=== PATIENT | male | born 1945 | race Caucasian/White ===

== ENCOUNTER → 2016-11-21 | Outpatient (CLI) | payer OTHER ==
[~2016-11-21] MED LIST: ASCO500C43 PO; ASPCH81X PO; ASPI325T45 PO; BIOFTAB24 PO; CRAN1TAB9 PO; CRFL PO; FINA5TAB PO; GARL10007 PO; LISI-725 PO; MULT-506 PO; OMEGCAP2 PO; OMEP40CA41 PO; PSYL1POW4 PO; PSYL48.59 PO; SIMV20TA2 PO; TAMS0.4C38 PO
--- NOTE | 2016-11-21 13:52 | DIAGNOSTIC IMAGING REPORT ---
BILATERAL CAROTID DOPPLER STUDY HISTORY: NUMBNESS OF THE FACE COMPARISON: None. TECHNIQUE: Real-time, grayscale, and color Doppler sonography of the carotid arteries was performed. Imaging reviewed in the transverse and longitudinal planes. All measurements were calculated based on NASCET criteria. FINDINGS: Antegrade flow is seen in the bilateral vertebral arteries. The brachial pressures are hemodynamically similar. Mild calcified plaque at the bilateral carotid bifurcations. The peak systolic velocity within the right ICA is 63 cm/s. The right systolic ratio is 0.8. The peak systolic velocity within the left ICA is 53 cm/s. The left systolic ratio is 0.6. IMPRESSION: No hemodynamically significant stenosis seen within the carotid arteries. Electronically signed by: Maxi Barrera M.D. 11/21/2016 1:51 PM Dictated Date/Time: 11/21/2016 1:49 PM
--- NOTE | 2016-11-28 11:07 | CODING QUERY MEDICAL NECESSITY ---
SUPPORTING DIAGNOSIS NEEDED A supporting diagnosis is required for the test/procedure performed on this patient in order for us to be reimbursed by the patient's insurance. Please provide a supporting diagnosis for the following test/procedure listed below next to the test name along with your signature. *If there is no additional diagnosis for this patient that would support the following test/procedure please document that below next to the test/procedure. Test(s)/Procedure(s) that require a supporting diagnosis: DOS 11/21 * Carotid Doppler DIAGNOSIS: Provider Signature: Date: Thank you Kaylynn Gurrola Health Information Management Once completed, please kindly fax back to [phone] For questions please call [phone]
== END | disposition home or self-care (01) ==
LOC: C.ULTRBC 13:01
PROVIDERS: ATTEND Psychiatry & Neurology Neurology
DX: R20.0 Anesthesia of skin (principal); R29.818 Other symptoms and signs involving the nervous system

== ENCOUNTER → 2016-11-21 | Outpatient (CLI) | payer OTHER ==
--- NOTE | 2016-11-22 10:09 | EEG Procedure Note ---
EEG Procedure Note Date of Service Nov 21, 2016. Start / End Times Start Time: 2:18 PM End Time: 2:38 PM Referring Physician Kady Taylor History This is a 71-year-old male with numbness and tingling of the left side of his face. EEG for further evaluation of possible seizure etiology. Home Medication List Scheduled Aspirin (Aspirin Chewable), 0.25 MG PO QAM Bioflavonoid Products (Vitamin C Plus 500 mg), 1 TAB PO BID Cranberry (Vaccinium Macrocarp (Cranberry), 1 TAB PO QAM Finasteride (Proscar), 5 MG PO HS Garlic (Garlic), 1 CAP PO QPM Lisinopril (Zestril), 20 MG PO QAM Multivitamin (Multivitamin), 1 TAB PO QAM [place]-3 Fatty Acids (Fish Oil), 1 CAP PO BID Omeprazole (Prilosec), 40 MG PO HS Psyllium (Metamucil), 1 DOSE PO QPM Simvastatin (Zocor), 20 MG PO QPM Tamsulosin Hcl (Flomax), 0.4 MG PO HS Description This is a 21 electrode EEG with a single channel dedicated to limited EKG. The electrodes were placed in accordance with the International 10-20 system. At the start of the recording the patient was in an awake state. Background was well organized and composed of symmetric mixed alpha and beta frequencies. There was a symmetric well-formed moderate amplitude 8-9 Hz posterior dominant rhythm that was reactive to eye opening and closure. Hyperventilation was not done. Intermittent photic stimulation at various frequencies produced no abnormalities. Sleep was indicated by vertex waves and symmetric sleep spindles. Interpretation This is a normal awake and asleep routine EEG. There was no electrographic seizures or epileptiform discharges. Clinical Correlation A normal EEG does not rule out epilepsy if there is a strong clinical suspicion. Snoring was noted during sleep. Clinical correlation advised.
== END | disposition home or self-care (01) ==
LOC: C.NEUR 14:03
PROVIDERS: ATTEND Psychiatry & Neurology Neurology
DX: R20.0 Anesthesia of skin (principal)

== ENCOUNTER 2017-01-22 10:02 | Observation (INO) | payer OTHER ==
[~2017-01-22] VITALS: Ht 167.6 cm; Wt 104.1 kg
[~2017-01-22 10:02] MED LIST changes: -ASCO500C43 PO; -ASPI325T45 PO; -CRFL PO; -PSYL48.59 PO
[2017-01-22] MEDS ORDERED: ASPIRIN 81 MG CHEW PO STA (10:23)
--- NOTE | 2017-01-22 10:25 | EMERGENCY ROOM VISIT NOTE ---
History Report prepared by Yue: Bipin Baxter Under the Supervision of: Dr. Jaguar Rodriguez M.D. First contact with patient: 10:11 Chief Complaint: CHEST PAIN Stated Complaint: CHEST PAIN, WEAKNESS Nursing Triage Summary: Pt. has intermittent CP that started over the last 3 mornings. He is currently 1/10. SOmetimes it feels like a 10/10. Pt. states it radiates to his left arm , and he has nausea. History of Present Illness The patient is a 71 year old male who presents to the Emergency Room with complaints of episodes of chest pain beginning about 3 days ago. He notes that he does not wake with the pain, but that the pain beginning about 10 minutes after waking. This morning his pain began around 0100, and the past 2 mornings his pain began around 0500. He rates his pain a 1/10 currently, but notes it was a 10/10 this morning. He adds having some nausea. The patient reports a history of cardiac issues beginning from when he was a child. He had had pericarditis as a child and was hospitalized for 7 weeks. He has had several stress tests, the last of which was 8 years ago which he passed. This past April of 2016 he had a cardiac catheterization. He notes at that time he was here at the hospital with the same complaint. He was going to have a stress test, but a catheterization was conducted instead because his enzymes were elevated. He reports there was a blockage in one artery. He was monitored for 2 days and then discharged. The patient states he takes 81 mg of Aspirin daily, but did not take any today. The patient adds that he is an ex-smoker of 35 years. Source of History: patient Onset: about 3 days ago Position: chest Symptom Intensity: 1/10 currently; 10/10 earlier Quality: other (chest pain) Timing: other (episodes) Associated Symptoms: + nausea Review of Systems See HPI for pertinent positives & negatives. A total of 10 systems reviewed and were otherwise negative. Past Medical & Surgical Medical Problems: (1) CAD (coronary artery disease) (2) Chest pain (3) Chronic back pain (4) Non-STEMI (non-ST elevated myocardial infarction) Family History FH: myocardial infarction Heart disease Social History Smoking Status: Former Smoker Drug Use: none Marital Status: Housing Status: lives with family Occupation Status: retired Current/Historical Medications Scheduled Ascorbic Acid (Vitamin C 500 mg), 500 MG PO BIDM Aspirin (Aspirin), 81 MG PO DAILY Cranberry (Vaccinium Macrocarp (Cranberry), 1 TAB PO QAM Finasteride (Proscar), 5 MG PO HS Garlic (Garlic), 1 CAP PO QPM Lisinopril (Zestril), 20 MG PO QAM Multivitamin (Multivitamin), 1 TAB PO QAM [place]-3 Fatty Acids (Fish Oil), 1 CAP PO BIDM Omeprazole (Prilosec), 40 MG PO DAILY Psyllium (Metamucil), 1 TBS PO HS Simvastatin (Zocor), 20 MG PO HS Tamsulosin Hcl (Flomax), 0.4 MG PO HS Allergies Coded Allergies: NO KNOWN DRUG ALLERGIES (Verified Allergy, Unknown, ., 10/07/16) Physical Exam Vital Signs Date Time Temp Pulse Resp B/P Pulse Ox O2 Delivery O2 Flow Rate FiO2 01/22/17 14:12 71 21 01/22/17 14:07 77 20 01/22/17 14:02 77 19 01/22/17 13:57 79 18 01/22/17 13:47 82 20 01/22/17 13:42 80 17 01/22/17 13:37 74 17 01/22/17 13:32 81 25 01/22/17 13:30 142/63 01/22/17 13:27 64 17 96 01/22/17 13:22 63 14 95 01/22/17 13:17 63 21 96 01/22/17 13:16 65 18 99/69 94 Room Air 01/22/17 13:15 99/69 01/22/17 13:12 75 22 95 01/22/17 13:07 64 16 95 01/22/17 13:02 61 19 95 01/22/17 13:00 151/67 01/22/17 12:57 61 18 96 01/22/17 12:54 64 01/22/17 12:52 60 20 96 01/22/17 12:47 64 21 97 01/22/17 12:46 164/70 01/22/17 12:42 62 20 96 01/22/17 12:37 65 20 96 01/22/17 12:32 66 20 97 01/22/17 12:30 141/90 01/22/17 12:27 61 21 97 01/22/17 12:22 66 16 96 01/22/17 12:17 58 16 96 01/22/17 12:15 146/76 01/22/17 12:12 67 22 96 01/22/17 12:07 68 19 97 01/22/17 12:02 61 22 96 01/22/17 12:00 153/69 01/22/17 11:57 66 15 96 01/22/17 11:52 69 15 97 01/22/17 11:47 65 18 96 01/22/17 11:46 132/67 01/22/17 11:42 65 16 97 01/22/17 11:37 64 19 96 01/22/17 11:32 64 16 96 01/22/17 11:30 155/63 01/22/17 11:27 60 16 96 01/22/17 11:22 66 17 95 01/22/17 11:17 66 20 96 01/22/17 11:15 137/72 01/22/17 11:12 65 18 97 01/22/17 11:07 65 21 97 01/22/17 11:02 65 16 98 01/22/17 11:00 170/107 01/22/17 10:57 63 16 95 01/22/17 10:52 63 17 97 01/22/17 10:47 62 15 96 01/22/17 10:45 155/76 01/22/17 10:42 66 17 97 01/22/17 10:37 61 17 95 01/22/17 10:32 62 17 96 01/22/17 10:31 157/77 01/22/17 10:27 74 16 96 01/22/17 10:22 68 19 96 01/22/17 10:20 70 01/22/17 10:16 176/73 01/22/17 10:14 97 Room Air 01/22/17 10:08 97 Room Air 01/22/17 10:08 37.2 68 16 164/81 97 Room Air Physical Exam GENERAL: Patient is a healthy-appearing well-nourished HEAD: Normocephalic atraumatic EYES: Ocular movements intact pupils equal and react to light OROPHARYNX mucous membranes are moist no exudates present no erythema or edema present NECK: Supple no nuchal rigidity CHEST: Good equal expansion LUNGS: Clear and equal to auscultation CARDIAC: Normal S1 and S2 ABDOMEN: Soft nontender no guarding BACK: No CVA tenderness EXTREMITIES: No pain upon palpation normal muscle strength in all groups no clubbing cyanosis or edema NEURO: Patient is following commands is answering questions appropriately. Alert and oriented x3 Cranial Nerves 2-12 grossly intact Medical Decision & Procedures ER Provider Diagnostic Interpretation: Radiology results as stated below per my review and radiologist interpretation: CHEST ONE VIEW PORTABLE FINDINGS: Lung volumes are normal. There is no pneumothorax or pleural effusion. There is no evidence of pulmonary edema. Mild cardiomegaly is unchanged. IMPRESSION: No acute cardiopulmonary findings. Electronically signed by: Reggie Bush M.D. 01/22/2017 11:11 AM Dictated Date/Time: 01/22/2017 11:10 AM Laboratory Results 01/22/17 10:15 Red Blood Count 4.66, Mean Corpuscular Volume 89.1, Mean Corpuscular Hemoglobin 31.8, Mean Corpuscular Hemoglobin Concent 35.7, Mean Platelet Volume 8.6, Neutrophils (%) (Auto) 85.5, Lymphocytes (%) (Auto) 7.4, Monocytes (%) (Auto) 6.7, Eosinophils (%) (Auto) 0.1, Basophils (%) (Auto) 0.1, Neutrophils # (Auto) 7.52, Lymphocytes # (Auto) 0.65, Monocytes # (Auto) 0.59, Eosinophils # (Auto) 0.01, Basophils # (Auto) 0.01 01/22/17 10:15 Test 01/22/17 10:15 White Blood Count 8.80 K/uL (4.8-10.8) Red Blood Count 4.66 M/uL (4.7-6.1) Hemoglobin 14.8 g/dL (14.0-18.0) Hematocrit 41.5 % (42-52) Mean Corpuscular Volume 89.1 fL (80-100) Mean Corpuscular Hemoglobin 31.8 pg (25-34) Mean Corpuscular Hemoglobin Concent 35.7 g/dl (32-36) Platelet Count 105 K/uL (130-400) Mean Platelet Volume 8.6 fL (7.4-10.4) Neutrophils (%) (Auto) 85.5 % Lymphocytes (%) (Auto) 7.4 % Monocytes (%) (Auto) 6.7 % Eosinophils (%) (Auto) 0.1 % Basophils (%) (Auto) 0.1 % Neutrophils # (Auto) 7.52 K/uL (1.4-6.5) Lymphocytes # (Auto) 0.65 K/uL (1.2-3.4) Monocytes # (Auto) 0.59 K/uL (0.11-0.59) Eosinophils # (Auto) 0.01 K/uL (0-0.5) Basophils # (Auto) 0.01 K/uL (0-0.2) RDW Standard Deviation 39.8 fL (36.4-46.3) RDW Coefficient of Variation 12.4 % (11.5-14.5) Immature Granulocyte % (Auto) 0.2 % Immature Granulocyte # (Auto) 0.02 K/uL (0.00-0.02) Anion Gap 9.0 mmol/L (3-11) Est Creatinine Clear Calc Drug Dose 85.4 ml/min Estimated GFR () 99.9 Estimated GFR (Non- 86.2 BUN/Creatinine Ratio 15.0 (10-20) Calcium Level 9.1 mg/dl (8.5-10.1) Total Bilirubin 0.6 mg/dl (0.2-1) Direct Bilirubin 0.1 mg/dl (0-0.2) Aspartate Amino Transf (AST/SGOT) 73 U/L (15-37) Alanine Aminotransferase (ALT/SGPT) 130 U/L (12-78) Alkaline Phosphatase 45 U/L (45-117) Total Creatine Kinase 118 U/L (39-308) Creatine Kinase MB 0.7 ng/ml (0.5-3.6) Creatine Kinase MB Ratio 0.6 (0-3.0) Troponin I < 0.015 ng/ml (0-0.045) Total Protein 7.3 gm/dl (6.4-8.2) Albumin 3.8 gm/dl (3.4-5.0) Lipase 131 U/L (73-393) Labs reviewed by ED physician. Medications Administered Medications (Trade) Dose Ordered Sig/Marilee Route Start Time Stop Time Status Last Admin Dose Admin Aspirin (Aspirin Chew) 324 mg NOW STAT PO 01/22/17 10:23 01/22/17 10:24 DC 3/26/17 10:28 324 MG ECG Indication: chest pain Rate (beats per minute): 65 Rhythm: sinus rhythm Findings: no acute ischemic change, no ectopy ED Course 1013: Past medical records reviewed. The patient was evaluated in room A2. A complete history and physical examination was performed. 1023: Ordered Aspirin 324 mg PO. 1135: I discussed the patient's case with Dr. Umaña, he has agreed to evaluate the patient for further management and care. Medical Decision Differential diagnosis: Etiologies such as cardiac ischemia, aortic dissection, pulmonary embolism, pneumonia, pneumothorax, musculoskeletal, infections, pericarditis, myocarditis , esophageal rupture, gastrointestinal, as well as others were entertained. This is a 71-year-old male who presents here she department with a history of an NSTEMI in the past. The patient reports he fell asleep last night and woke to severe chest pain that was 10 out of 10 radiating down his arm. The patient reports the chest pain was similar to when he had his previous NSTEMI. He is currently pain-free here in the emergency department. Patient has an unchanged EKG and has normal cardiac enzymes including CK-MB and troponin fraction. The patient was given 324 mg of aspirin in the emergency department. Based on the patient's past medical history I did discuss the case with the hospitalist service who agreed to admit the patient. Patient was in agreement with the treatment plan. Consults Time Called: 1130 Consulting Physician: Dr. Umaña, Internal Medicine Returned Call: 1132 I discussed the patient's case with Dr. Umaña, he has agreed to evaluate the patient for further management and care. Scribe Attestation The scribe's documentation has been prepared under my direction and personally reviewed by me in its entirety. I confirm that the note above accurately reflects all work, treatment, procedures, and medical decision making performed by me. Departure Information Dispostion Being Evaluated By Hospitalist Referrals Andres Salcido M.D. (PCP) Patient Instructions [facility]
[2017-01-22] MEDS ORDERED: ASPI325T45 PO (10:27)
[2017-01-22] MEDS ORDERED: ASCO500C43 PO (10:27)
[2017-01-22] MEDS ORDERED: PSYL48.59 PO (10:31)
[2017-01-22 10:35] LABS: BASO % 0.1 %; BASO ABS # 0.01 K/uL (0-0.2); COMPLETE YES; EOS % 0.1 %; HEMATOCRIT 41.5 % (42-52); IG% 0.2 %; LYMPH % 7.4 %; LYMPH ABS # 0.65 K/uL (1.2-3.4); MEAN CELL VOLUME 89.1 fL (80-100); MEAN CORPUSCULAR HEMOGLOBIN 31.8 pg (25-34); MEAN CORPUSCULAR HGB CONC 35.7 g/dl (32-36); MEAN PLATELET VOLUME 8.6 fL (7.4-10.4); MONO % 6.7 %; NEUT % 85.5 %; PLATELET COUNT 105 K/uL (130-400); RED BLOOD COUNT 4.66 M/uL (4.7-6.1)
[2017-01-22 10:52] LABS: ALT/SGPT 130 U/L (12-78); BLOOD UREA NITROGEN 14 mg/dl (7-18); CALCIUM 9.1 mg/dl (8.5-10.1); CARBON DIOXIDE 27 mmol/L (21-32); CHLORIDE 107 mmol/L (98-107); GLUCOSE 120 mg/dl (70-99); SODIUM 143 mmol/L (136-145)
[2017-01-22 10:57] LABS: ALKALINE PHOSPHATASE 45 U/L (45-117); AST/SGOT 73 U/L (15-37); CKMB/CK RATIO 0.6 (0-3.0)
--- NOTE | 2017-01-22 11:12 | DIAGNOSTIC IMAGING REPORT ---
CHEST ONE VIEW PORTABLE CLINICAL HISTORY: Chest pain. COMPARISON STUDY: Chest radiograph September 20, [address] June 03, 2016. FINDINGS: Lung volumes are normal. There is no pneumothorax or pleural effusion. There is no evidence of pulmonary edema. Mild cardiomegaly is unchanged. IMPRESSION: No acute cardiopulmonary findings. Electronically signed by: Reggie Bush M.D. 01/22/2017 11:11 AM Dictated Date/Time: 01/22/2017 11:10 AM
[2017-01-22] MEDS ORDERED: NITROGLYCERIN 0.4 MG SL PER TAB CHARGE SL PRN (12:30)
[2017-01-22] MEDS ORDERED: ONDANSETRON INJ 2 MG/ML 2 ML VIAL IV PRN (12:30)
[2017-01-22] MEDS ORDERED: POLYETHYLENE (MIRALAX) 17 GM PACK PO PRN (12:30)
[2017-01-22] MEDS ORDERED: MoRPHine SULFATE 2 MG/ML CARP IV PRN (12:30)
[2017-01-22] MEDS ORDERED: IV FLUIDS COMPLETED PRN (14:15)
[2017-01-22 15:56] VITALS: BP 162/78; PULSE 72; TEMP 36.8; O2SAT 99; Ht 167.6 cm; Wt 104.1 kg
[2017-01-22 16:01] LABS: PROTHROMBIN TIME (PATIENT) 10.6 SECONDS (9.0-12.0)
--- NOTE | 2017-01-22 16:06 | History and Physical ---
History & Physical Date & Time of Service: Jan 22, 2017 at 15:50 Chief Complaint: Cad,Chest Pain Primary Care Physician: Andres Salcido M.D. History of Present Illness Source: patient, family, clinic records, hospital records 71 yo male with a history of CAD, NSTEMI who presents to the ED today with chest pain when he wakes up. The patient reports that his chest pain is an ongoing issue, occurs mostly when he wakes up. The pain is severe, described as sharp. He said that the pain is similar to what he experienced in April 2016 when he had an NSTEMI. Reviewed of the records show that in April he had a left heart catheterization that showed minimal disease. At the time, it was thought that maybe he had a small clot in RCA that dissolved prior to the cath. His heart function was stable on echo. He was managed medically on statin, Coreg, Lisinopril and aspirin. Several weeks after his heart cath his symptoms returned, again, in the morning. Would not wake him up but he would notice the pain after waking up. He saw cardiology at that time and they performed a nuclear stress test that showed no signs of coronary ischemia. He has continued to have issues intermittently, almost always in the morning. Interestingly, he never has chest pain on exertion, he walks on a treadmill every day for 20-30 minutes at 3mph and never has symptoms. He has some shortness of breath but no chest pain or pressure. Today, the pain occurred when he woke up. It has happened the past 4 mornings. He did not have any nausea, diaphoresis or radiation of the pain. His EKG showed NSR, troponin negative, CXR negative. I asked if his PCP had tried aggressive treatment of GERD and he did say that his omeprazole increased from 20mg to 40mg, no change in symptoms. He has not had an EGD in the past. Past Medical/Surgical History CAD, NSTEMI 04/2016 HTN BPH hyperlipidemia Family History FH: myocardial infarction Heart disease Social History Smoking Status: Former Smoker Drug Use: none Marital Status: Housing status: lives with family Occupational Status: retired Immunizations History of Influenza Vaccine: N/A History of Tetanus Vaccine?: No History of Pneumococcal: No Pneumococcal Date: May 20, 2006 History of Hepatitis B Vaccine: No Multi-Drug Resistant Organisms History of MDRO: No Allergies Coded Allergies: NO KNOWN DRUG ALLERGIES (Verified Allergy, Unknown, ., 10/07/16) Home Medications Scheduled Ascorbic Acid (Vitamin C 500 mg), 500 MG PO BIDM Aspirin (Aspirin), 81 MG PO DAILY Cranberry (Vaccinium Macrocarp (Cranberry), 1 TAB PO QAM Finasteride (Proscar), 5 MG PO HS Garlic (Garlic), 1 CAP PO QPM Lisinopril (Zestril), 20 MG PO QAM Multivitamin (Multivitamin), 1 TAB PO QAM [place]-3 Fatty Acids (Fish Oil), 1 CAP PO BIDM Omeprazole (Prilosec), 40 MG PO DAILY Psyllium (Metamucil), 1 TBS PO HS Simvastatin (Zocor), 20 MG PO HS Tamsulosin Hcl (Flomax), 0.4 MG PO HS Review of Systems Constitutional: No chills, No fatigue, No fever, No problem reported, No sweats , No weakness, No weight loss Eyes: No diplopia, No discharge, No eye pain, No problem reported, No redness, No worsening of vision ENT: No dental problems, No hearing loss, No nasal symptoms, No problem reported, No sore throat, No tinnitus, No trouble swallowing, No unusual epistaxis Respiratory: No cough, No dyspnea at rest, No dyspnea on exertion, No hemoptysis, No problem reported, No shortness of breath, No sputum, No wheezing Cardiovascular: + chest pain, No PND, No claudication, No edema, No orthopnea, No palpitations Abdomen: No GI bleeding, No constipation, No diarrhea, No nausea, No pain, No problem reported, No vomiting Musculoskeletal: No calf pain, No joint pain, No muscle pain, No problem reported, No swelling Genitourinary - Male: No dysuria, No hematuria, No urinary frequency, No urinary urgency Neurologic: No balance problems, No memory loss, No numbness/tingling, No paralysis, No problem reported, No vertigo, No weakness Psychiatric: No anhedonism, No anxiety, No depression symptoms, No insomnia, No problem reported, No substance abuse Endocrine: No excessive thirst, No excessive urination, No fatigue, No problem reported Hematologic / Lymphatic: No abnormal bleeding/bruising, No clotting problems, No night sweats, No problem reported, No swollen lymph nodes Integumentary: No bleeding, No color change, No itch, No new/changing skin lesions, No problem reported, No rash Allergic / Immunologic: No environmental allergies, No food allergies, No frequent infections, No hives, No pet sensitivities, No poor healing, No problem reported, No prolonged convalescence, No seasonal allergies Physical Exam Vital Signs Date Time Temp Pulse Resp B/P Pulse Ox O2 Delivery O2 Flow Rate FiO2 01/22/17 14:12 71 21 01/22/17 14:07 77 20 01/22/17 14:02 77 19 01/22/17 13:57 79 18 01/22/17 13:47 82 20 01/22/17 13:42 80 17 01/22/17 13:37 74 17 01/22/17 13:32 81 25 01/22/17 13:30 142/63 01/22/17 13:27 64 17 96 01/22/17 13:22 63 14 95 01/22/17 13:17 63 21 96 01/22/17 13:16 65 18 99/69 94 Room Air 01/22/17 13:15 99/69 01/22/17 13:12 75 22 95 01/22/17 13:07 64 16 95 01/22/17 13:02 61 19 95 01/22/17 13:00 151/67 01/22/17 12:57 61 18 96 01/22/17 12:54 64 01/22/17 12:52 60 20 96 01/22/17 12:47 64 21 97 01/22/17 12:46 164/70 01/22/17 12:42 62 20 96 01/22/17 12:37 65 20 96 01/22/17 12:32 66 20 97 01/22/17 12:30 141/90 01/22/17 12:27 61 21 97 01/22/17 12:22 66 16 96 01/22/17 12:17 58 16 96 01/22/17 12:15 146/76 01/22/17 12:12 67 22 96 01/22/17 12:07 68 19 97 01/22/17 12:02 61 22 96 01/22/17 12:00 153/69 01/22/17 11:57 66 15 96 01/22/17 11:52 69 15 97 01/22/17 11:47 65 18 96 01/22/17 11:46 132/67 01/22/17 11:42 65 16 97 01/22/17 11:37 64 19 96 01/22/17 11:32 64 16 96 01/22/17 11:30 155/63 01/22/17 11:27 60 16 96 01/22/17 11:22 66 17 95 01/22/17 11:17 66 20 96 01/22/17 11:15 137/72 01/22/17 11:12 65 18 97 01/22/17 11:07 65 21 97 01/22/17 11:02 65 16 98 01/22/17 11:00 170/107 01/22/17 10:57 63 16 95 01/22/17 10:52 63 17 97 01/22/17 10:47 62 15 96 01/22/17 10:45 155/76 01/22/17 10:42 66 17 97 01/22/17 10:37 61 17 95 01/22/17 10:32 62 17 96 01/22/17 10:31 157/77 01/22/17 10:27 74 16 96 01/22/17 10:22 68 19 96 01/22/17 10:20 70 01/22/17 10:16 176/73 01/22/17 10:14 97 Room Air 01/22/17 10:08 97 Room Air 01/22/17 10:08 37.2 68 16 164/81 97 Room Air General Appearance: no apparent distress, + obese Head: normocephalic, atraumatic Eyes: normal inspection, EOMI, sclerae normal ENT: normal ENT inspection, hearing grossly normal, pharynx normal Neck: supple, no adenopathy, no JVD, trachea midline Respiratory/Chest: chest non-tender, lungs clear, normal breath sounds, no respiratory distress, no accessory muscle use Cardiovascular: regular rate, rhythm, no edema, no gallop, no JVD, no murmur, normal peripheral pulses Abdomen/GI: normal bowel sounds, non tender, soft, no organomegaly Back: normal inspection, no CVA tenderness, no muscle spasm, normal range of motion Extremities/Musculoskelatal: normal inspection, no calf tenderness, normal capillary refill, no pedal edema, normal range of motion 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, no motor/sensory deficits, alert, normal mood/affect, normal reflexes, oriented x 3 Skin: normal color, warm/dry, no rash Lymphatic: no adenopathy Diagnostics Laboratory Results Results Past 24 Hours Test 01/22/17 10:15 01/22/17 15:30 Range/Units White Blood Count 8.80 4.8-10.8 K/uL Red Blood Count 4.66 4.7-6.1 M/uL Hemoglobin 14.8 14.0-18.0 g/dL Hematocrit 41.5 42-52 % Mean Corpuscular Volume 89.1 80-100 fL Mean Corpuscular Hemoglobin 31.8 25-34 pg Mean Corpuscular Hemoglobin Concent 35.7 32-36 g/dl Platelet Count 105 130-400 K/uL Mean Platelet Volume 8.6 7.4-10.4 fL Neutrophils (%) (Auto) 85.5 % Lymphocytes (%) (Auto) 7.4 % Monocytes (%) (Auto) 6.7 % Eosinophils (%) (Auto) 0.1 % Basophils (%) (Auto) 0.1 % Neutrophils # (Auto) 7.52 1.4-6.5 K/uL Lymphocytes # (Auto) 0.65 1.2-3.4 K/uL Monocytes # (Auto) 0.59 0.11-0.59 K/uL Eosinophils # (Auto) 0.01 0-0.5 K/uL Basophils # (Auto) 0.01 0-0.2 K/uL RDW Standard Deviation 39.8 36.4-46.3 fL RDW Coefficient of Variation 12.4 11.5-14.5 % Immature Granulocyte % (Auto) 0.2 % Immature Granulocyte # (Auto) 0.02 0.00-0.02 K/uL Sodium Level 143 136-145 mmol/L Potassium Level 4.0 3.5-5.1 mmol/L Chloride Level 107 98-107 mmol/L Carbon Dioxide Level 27 21-32 mmol/L Anion Gap 9.0 3-11 mmol/L Blood Urea Nitrogen 14 7-18 mg/dl Creatinine 0.90 0.60-1.40 mg/dl Est Creatinine Clear Calc Drug Dose 85.4 ml/min Estimated GFR () 99.9 Estimated GFR (Non- 86.2 BUN/Creatinine Ratio 15.0 10-20 Random Glucose 120 70-99 mg/dl Calcium Level 9.1 8.5-10.1 mg/dl Total Bilirubin 0.6 0.2-1 mg/dl Direct Bilirubin 0.1 0-0.2 mg/dl Aspartate Amino Transf (AST/SGOT) 73 15-37 U/L Alanine Aminotransferase (ALT/SGPT) 130 12-78 U/L Alkaline Phosphatase 45 45-117 U/L Total Creatine Kinase 118 39-308 U/L Creatine Kinase MB 0.7 0.5-3.6 ng/ml Creatine Kinase MB Ratio 0.6 0-3.0 Troponin I < 0.015 0-0.045 ng/ml Total Protein 7.3 6.4-8.2 gm/dl Albumin 3.8 3.4-5.0 gm/dl Lipase 131 73-393 U/L CXR normal Normal EKG Impression Assessment and Plan 71 yo male with history of CAD with NSTEMI in April 2016, presents with chest pain at rest occurring in the morning, no history of exertional angina - Chest pain, atypical normal EKG, initial enzymes negative observe on tele, cycle enzymes consult cardiology, do not feel that stress test would be helpful had a negative nuclear stress in the fall, minimal CAD on cath last April if an EGD is recommended by GI then would likely need cards clearance - Possible GERD perhaps this is severe GERD, even esophagitis Protonix BID NPO after midnight GI consult for recommendations - HTN: lisinopril - Hyperlipidemia: statin - DVT prophylaxis: heparin Level of Care Telemetry Resuscitation Status FULL RESUSCITATION VTE Prophylaxis VTE Risk Assessment Done? Y/N: Yes Risk Level: Moderate Given or contraindicated: Unfractionated heparin SQ Additional Copies To Andres Salcido M.D.
[2017-01-22 16:50] VITALS: BP 148/69; PULSE 62
[2017-01-22 18:10] VITALS: BP 143/65; PULSE 61; TEMP 36.7; O2SAT 96
[2017-01-22 18:37] LABS: CKMB/CK RATIO 0.7 (0-3.0)
[2017-01-22 20:18] VITALS: BP 160/80; PULSE 57; TEMP 36.7; O2SAT 97
[2017-01-22] MEDS: PANTOprazole SOD 40 MG TAB PO SCH (20:34)
[2017-01-22] MEDS ORDERED: SIMVASTATIN 20 MG TAB PO SCH (21:00)
[2017-01-22] MEDS ORDERED: TAMSULOSIN HCL 0.4 MG CAP PO SCH (21:00)
[2017-01-22] MEDS ORDERED: FINASTERIDE 5 MG TAB PO SCH (21:00)
[2017-01-22] MEDS: HEPARIN SOD 5000 UNIT/0.5 ML CARP SQ SCH (21:25)
[2017-01-22] MEDS: ACETAMINOPHEN 325 MG TAB PO PRN (21:29)
[2017-01-22 22:36] VITALS: BP 151/78; PULSE 56; O2SAT 98
[2017-01-22 23:28] VITALS: BP 138/70; PULSE 57; TEMP 36.6; O2SAT 96
[2017-01-23 02:18] LABS: CKMB/CK RATIO 1.2 (0-3.0)
[2017-01-23] MEDS: ACETAMINOPHEN 325 MG TAB PO PRN ×2 (03:24→07:36)
[2017-01-23 04:45] VITALS: BP 150/62; PULSE 58; TEMP 36.8; O2SAT 98
[2017-01-23] MEDS: HEPARIN SOD 5000 UNIT/0.5 ML CARP SQ SCH ×2 (05:32→13:15)
[2017-01-23] MEDS: PANTOprazole SOD 40 MG TAB PO SCH (07:28)
[2017-01-23 07:53] VITALS: BP 165/77; PULSE 59; TEMP 36.6; O2SAT 98
[2017-01-23 08:24] LABS: HEMATOCRIT 43.3 % (42-52); MEAN CELL VOLUME 89.8 fL (80-100); MEAN CORPUSCULAR HEMOGLOBIN 31.7 pg (25-34); MEAN CORPUSCULAR HGB CONC 35.3 g/dl (32-36); RED BLOOD COUNT 4.82 M/uL (4.7-6.1); WHITE BLOOD COUNT 4.56 K/uL (4.8-10.8)
[2017-01-23 08:48] LABS: BUN/CREATININE RATIO 13.8 (10-20); CALCIUM 8.9 mg/dl (8.5-10.1); CREATININE 0.92 mg/dl (0.60-1.40); POTASSIUM 3.9 mmol/L (3.5-5.1)
[2017-01-23 08:49] VITALS: O2SAT 98
[2017-01-23 08:51] LABS: ALB/GLOB RATIO 1.1 (0.9-2)
[2017-01-23] MEDS ORDERED: LISINOPRIL 20 MG TAB PO SCH (09:00)
[2017-01-23] MEDS ORDERED: ASPIRIN 81 MG ECTAB PO SCH (09:00)
[2017-01-23 09:14] LABS: MEAN PLATELET VOLUME 8.3 fL (7.4-10.4); PLATELET COUNT 99 K/uL (130-400)
--- NOTE | 2017-01-23 09:17 | Family Medicine Progress Note ---
Progress Note Date of Service Jan 23, 2017. Objective Vital Signs Date Time Temp Pulse Resp B/P Pulse Ox O2 Delivery O2 Flow Rate FiO2 01/23/17 08:49 98 Room Air 01/23/17 07:53 36.6 59 20 165/77 98 01/23/17 04:45 36.8 58 18 150/62 98 Room Air 01/23/17 04:14 Room Air 01/23/17 00:10 Room Air 01/22/17 23:28 36.6 57 18 138/70 96 Room Air 01/22/17 22:36 56 18 151/78 98 Room Air 01/22/17 20:18 36.7 57 18 160/80 97 Room Air 01/22/17 19:49 Room Air 01/22/17 18:10 36.7 61 22 143/65 96 Room Air 01/22/17 16:50 62 148/69 01/22/17 16:00 Room Air 01/22/17 15:56 36.8 72 24 162/78 99 Room Air 01/22/17 14:12 71 21 01/22/17 14:07 77 20 01/22/17 14:02 77 19 01/22/17 13:57 79 18 01/22/17 13:47 82 20 01/22/17 13:42 80 17 01/22/17 13:37 74 17 01/22/17 13:32 81 25 01/22/17 13:30 142/63 01/22/17 13:27 64 17 96 01/22/17 13:22 63 14 95 01/22/17 13:17 63 21 96 01/22/17 13:16 65 18 99/69 94 Room Air 01/22/17 13:15 99/69 01/22/17 13:12 75 22 95 01/22/17 13:07 64 16 95 01/22/17 13:02 61 19 95 01/22/17 13:00 151/67 01/22/17 12:57 61 18 96 01/22/17 12:54 64 01/22/17 12:52 60 20 96 01/22/17 12:47 64 21 97 01/22/17 12:46 164/70 01/22/17 12:42 62 20 96 01/22/17 12:37 65 20 96 01/22/17 12:32 66 20 97 01/22/17 12:30 141/90 01/22/17 12:27 61 21 97 01/22/17 12:22 66 16 96 01/22/17 12:17 58 16 96 01/22/17 12:15 146/76 01/22/17 12:12 67 22 96 01/22/17 12:07 68 19 97 01/22/17 12:02 61 22 96 01/22/17 12:00 153/69 01/22/17 11:57 66 15 96 01/22/17 11:52 69 15 97 01/22/17 11:47 65 18 96 01/22/17 11:46 132/67 01/22/17 11:42 65 16 97 01/22/17 11:37 64 19 96 01/22/17 11:32 64 16 96 01/22/17 11:30 155/63 01/22/17 11:27 60 16 96 01/22/17 11:22 66 17 95 01/22/17 11:17 66 20 96 01/22/17 11:15 137/72 01/22/17 11:12 65 18 97 01/22/17 11:07 65 21 97 01/22/17 11:02 65 16 98 01/22/17 11:00 170/107 01/22/17 10:57 63 16 95 01/22/17 10:52 63 17 97 01/22/17 10:47 62 15 96 01/22/17 10:45 155/76 01/22/17 10:42 66 17 97 01/22/17 10:37 61 17 95 01/22/17 10:32 62 17 96 01/22/17 10:31 157/77 01/22/17 10:27 74 16 96 01/22/17 10:22 68 19 96 01/22/17 10:20 70 01/22/17 10:16 176/73 01/22/17 10:14 97 Room Air 01/22/17 10:08 97 Room Air 01/22/17 10:08 37.2 68 16 164/81 97 Room Air Laboratory Results Results Past 24 Hours Test 01/22/17 10:15 01/22/17 15:30 01/22/17 18:04 01/23/17 01:40 Range/Units White Blood Count 8.80 4.8-10.8 K/uL Red Blood Count 4.66 4.7-6.1 M/uL Hemoglobin 14.8 14.0-18.0 g/dL Hematocrit 41.5 42-52 % Mean Corpuscular Volume 89.1 80-100 fL Mean Corpuscular Hemoglobin 31.8 25-34 pg Mean Corpuscular Hemoglobin Concent 35.7 32-36 g/dl Platelet Count 105 130-400 K/uL Mean Platelet Volume 8.6 7.4-10.4 fL Neutrophils (%) (Auto) 85.5 % Lymphocytes (%) (Auto) 7.4 % Monocytes (%) (Auto) 6.7 % Eosinophils (%) (Auto) 0.1 % Basophils (%) (Auto) 0.1 % Neutrophils # (Auto) 7.52 1.4-6.5 K/uL Lymphocytes # (Auto) 0.65 1.2-3.4 K/uL Monocytes # (Auto) 0.59 0.11-0.59 K/uL Eosinophils # (Auto) 0.01 0-0.5 K/uL Basophils # (Auto) 0.01 0-0.2 K/uL RDW Standard Deviation 39.8 36.4-46.3 fL RDW Coefficient of Variation 12.4 11.5-14.5 % Immature Granulocyte % (Auto) 0.2 % Immature Granulocyte # (Auto) 0.02 0.00-0.02 K/uL Sodium Level 143 136-145 mmol/L Potassium Level 4.0 3.5-5.1 mmol/L Chloride Level 107 98-107 mmol/L Carbon Dioxide Level 27 21-32 mmol/L Anion Gap 9.0 3-11 mmol/L Blood Urea Nitrogen 14 7-18 mg/dl Creatinine 0.90 0.60-1.40 mg/dl Est Creatinine Clear Calc Drug Dose 85.4 ml/min Estimated GFR () 99.9 Estimated GFR (Non- 86.2 BUN/Creatinine Ratio 15.0 10-20 Random Glucose 120 70-99 mg/dl Calcium Level 9.1 8.5-10.1 mg/dl Total Bilirubin 0.6 0.2-1 mg/dl Direct Bilirubin 0.1 0-0.2 mg/dl Aspartate Amino Transf (AST/SGOT) 73 15-37 U/L Alanine Aminotransferase (ALT/SGPT) 130 12-78 U/L Alkaline Phosphatase 45 45-117 U/L Total Creatine Kinase 118 109 110 39-308 U/L Creatine Kinase MB 0.7 0.8 1.3 0.5-3.6 ng/ml Creatine Kinase MB Ratio 0.6 0.7 1.2 0-3.0 Troponin I < 0.015 0.023 < 0.015 0-0.045 ng/ml Total Protein 7.3 6.4-8.2 gm/dl Albumin 3.8 3.4-5.0 gm/dl Lipase 131 73-393 U/L Prothrombin Time 10.6 9.0-12.0 SECONDS Prothromb Time International Ratio 1.0 0.9-1.1 Test 01/23/17 08:03 Range/Units White Blood Count 4.56 4.8-10.8 K/uL Red Blood Count 4.82 4.7-6.1 M/uL Hemoglobin 15.3 14.0-18.0 g/dL Hematocrit 43.3 42-52 % Mean Corpuscular Volume 89.8 80-100 fL Mean Corpuscular Hemoglobin 31.7 25-34 pg Mean Corpuscular Hemoglobin Concent 35.3 32-36 g/dl Platelet Count 99 130-400 K/uL Mean Platelet Volume 8.3 7.4-10.4 fL RDW Standard Deviation 40.9 36.4-46.3 fL RDW Coefficient of Variation 12.6 11.5-14.5 % Activated Partial Thromboplast Time 25.2 21.0-31.0 SECONDS Partial Thromboplastin Ratio 1.0 Sodium Level 142 136-145 mmol/L Potassium Level 3.9 3.5-5.1 mmol/L Chloride Level 105 98-107 mmol/L Carbon Dioxide Level 30 21-32 mmol/L Anion Gap 7.0 3-11 mmol/L Blood Urea Nitrogen 13 7-18 mg/dl Creatinine 0.92 0.60-1.40 mg/dl Est Creatinine Clear Calc Drug Dose 84.4 ml/min Estimated GFR () 97.3 Estimated GFR (Non- 84.0 BUN/Creatinine Ratio 13.8 10-20 Random Glucose 114 70-99 mg/dl Calcium Level 8.9 8.5-10.1 mg/dl Total Bilirubin 0.7 0.2-1 mg/dl Aspartate Amino Transf (AST/SGOT) 41 15-37 U/L Alanine Aminotransferase (ALT/SGPT) 95 12-78 U/L Alkaline Phosphatase 47 45-117 U/L Total Protein 7.4 6.4-8.2 gm/dl Albumin 3.8 3.4-5.0 gm/dl Globulin 3.6 2.5-4.0 gm/dl Albumin/Globulin Ratio 1.1 0.9-2
[2017-01-23 09:20] LABS: BASO % 0.4 %; BASO ABS # 0.02 K/uL (0-0.2); COMPLETE YES; EOS % 1.3 %; IG% 0.2 %; LYMPH % 22.4 %; LYMPH ABS # 1.02 K/uL (1.2-3.4); MONO % 9.4 %; NEUT % 66.3 %
[2017-01-23] MEDS ORDERED: SODIUM CHLORIDE 0.9% 1000ML 1,000 ML IV SCH (10:00)
--- NOTE | 2017-01-23 10:00 | Gastrointestinal Consultation ---
Gastrointestinal Consultation Date of Consultation: Jan 23, 2017 Attending Physician: Dr. Umaña Consulting Physician: Dr. Mcnamara/AYAKA Mcgarry Reason for Consultation: Atypical chest pain History of Present Illness Patient is a 71 year old male with a history of CAD and NSTEMI presenting with intermittent chest pains that awaken him from sleep. He states the pains have been ongoing since April of 2016. Since the onset, he has had close follow up with cardiology and has undergone an extensive work up of symptoms. He did have an unremarkable nuclear stress test in the fall of 2015. On arrival, he did have an unremarkable ECG as well as serial negative troponins. The patient was given a single dose of nitroglycerin which reportedly did not improve his symptoms. The patient describes the pain as a sharp, severe pain that comes and goes and is most notable in the morning and again awakening him from sleep. Pain is currently rated as 2/10 in the mid chest without radiation. Associated symptoms include: epigastric discomfort, nausea and fatigue. Patient does have a history of GERD but denies any pyrosis stating "that's pretty well controlled ". He further denies any dysphagia, odynophagia, vomiting, diarrhea, constipation, melena or hematochezia. H&H on arrival was noted to be 14.8 and 41.5 with repeat of 15.3 and 43.3 respectively. Patient was placed on Protonix 40 mg BID on arrival. Risk factors: daily alcohol, aspirin with NSAID use but no tobacco. Past Medical/Surgical History Medical Problems: (1) Radiating chest pain Status: Acute Past Medical History: 1. CAD 2. HTN 3. Hyperlipidemia 4. NSTEMI 5. BPH 6. GERD 7. Colon polyp 8. Diverticulosis Past Surgical History: 1. Cardiac catheterization 2. EGD years ago 3. Colonoscopy 2016 with polypectomy Family History FH: myocardial infarction Heart disease Mother with colon cancer. Father with heart disease Social History Smoking Status: Former Smoker Alcohol Use: other (daily) Drug Use: none Marital Status: Housing Status: lives with family Occupation Status: retired Allergies Coded Allergies: NO KNOWN DRUG ALLERGIES (Verified Allergy, Unknown, ., 10/07/16) Current Medications Home Meds and Scripts Medications Dose Route/Sig Max Daily Dose Days Date Category Metamucil (Psyllium) 48.57 % Pow 1 Tbs PO HS 01/22/17 Reported Vitamin C 500 mg (Ascorbic Acid) 1 Chw Chw 500 Mg PO BIDM 01/22/17 Reported Aspirin 325 Mg Tab 81 Mg PO DAILY 01/22/17 Reported Fish Oil (Dunnigan-3 Fatty Acids) 1 Cap Cap 1 Cap PO BIDM 10/07/16 Reported Cranberry (Cranberry (Vaccinium Macrocarp) 300 Mg Tab 1 Tab PO QAM 10/07/16 Reported Garlic 1,000 Mg Cap 1 Cap PO QPM 10/07/16 Reported Multivitamin (Multivitamins) Tab 1 Tab PO QAM 10/07/16 Reported Prilosec (Omeprazole) 40 Mg Cap 40 Mg PO DAILY 10/07/16 Reported Proscar (Finasteride) 5 Mg Tab 5 Mg PO HS 10/07/16 Reported Flomax (Tamsulosin Hcl) 0.4 Mg Cap 0.4 Mg PO HS 10/07/16 Reported Zocor (Simvastatin) 20 Mg Tab 20 Mg PO HS 10/07/16 Reported Zestril (Lisinopril) 20 Mg Tab 20 Mg PO QAM 10/07/16 Reported Review of Systems See HPI for pertinent positives & negatives. A total of 10 systems reviewed and were otherwise negative. Physical Exam Date Time Temp Pulse Resp B/P Pulse Ox O2 Delivery O2 Flow Rate FiO2 01/23/17 08:49 98 Room Air 01/23/17 07:53 36.6 59 20 165/77 98 01/23/17 04:45 36.8 58 18 150/62 98 Room Air 01/23/17 04:14 Room Air 01/23/17 00:10 Room Air 01/22/17 23:28 36.6 57 18 138/70 96 Room Air 01/22/17 22:36 56 18 151/78 98 Room Air 01/22/17 20:18 36.7 57 18 160/80 97 Room Air 01/22/17 19:49 Room Air 01/22/17 18:10 36.7 61 22 143/65 96 Room Air 01/22/17 16:50 62 148/69 01/22/17 16:00 Room Air 01/22/17 15:56 36.8 72 24 162/78 99 Room Air 01/22/17 14:12 71 21 01/22/17 14:07 77 20 01/22/17 14:02 77 19 3/26/17 13:57 79 18 01/22/17 13:47 82 20 01/22/17 13:42 80 17 01/22/17 13:37 74 17 01/22/17 13:32 81 25 01/22/17 13:30 142/63 01/22/17 13:27 64 17 96 01/22/17 13:22 63 14 95 01/22/17 13:17 63 21 96 01/22/17 13:16 65 18 99/69 94 Room Air 01/22/17 13:15 99/69 01/22/17 13:12 75 22 95 01/22/17 13:07 64 16 95 01/22/17 13:02 61 19 95 01/22/17 13:00 151/67 01/22/17 12:57 61 18 96 01/22/17 12:54 64 01/22/17 12:52 60 20 96 01/22/17 12:47 64 21 97 01/22/17 12:46 164/70 01/22/17 12:42 62 20 96 01/22/17 12:37 65 20 96 01/22/17 12:32 66 20 97 01/22/17 12:30 141/90 01/22/17 12:27 61 21 97 01/22/17 12:22 66 16 96 01/22/17 12:17 58 16 96 01/22/17 12:15 146/76 01/22/17 12:12 67 22 96 01/22/17 12:07 68 19 97 01/22/17 12:02 61 22 96 01/22/17 12:00 153/69 01/22/17 11:57 66 15 96 01/22/17 11:52 69 15 97 01/22/17 11:47 65 18 96 01/22/17 11:46 132/67 01/22/17 11:42 65 16 97 01/22/17 11:37 64 19 96 01/22/17 11:32 64 16 96 01/22/17 11:30 155/63 01/22/17 11:27 60 16 96 01/22/17 11:22 66 17 95 01/22/17 11:17 66 20 96 01/22/17 11:15 137/72 01/22/17 11:12 65 18 97 01/22/17 11:07 65 21 97 01/22/17 11:02 65 16 98 01/22/17 11:00 170/107 01/22/17 10:57 63 16 95 01/22/17 10:52 63 17 97 01/22/17 10:47 62 15 96 01/22/17 10:45 155/76 01/22/17 10:42 66 17 97 01/22/17 10:37 61 17 95 01/22/17 10:32 62 17 96 01/22/17 10:31 157/77 01/22/17 10:27 74 16 96 01/22/17 10:22 68 19 96 01/22/17 10:20 70 01/22/17 10:16 176/73 01/22/17 10:14 97 Room Air 01/22/17 10:08 97 Room Air 01/22/17 10:08 37.2 68 16 164/81 97 Room Air General Appearance: WD/WN, no apparent distress Eyes: EOMI ENT: hearing grossly normal Neck: supple Respiratory/Chest: lungs clear, normal breath sounds, no respiratory distress Cardiovascular: regular rate, rhythm, no gallop, no murmur Abdomen: normal bowel sounds, non tender, soft Extremities: no pedal edema Neurologic/Psych: alert, normal mood/affect, oriented x 3 Skin: warm/dry Laboratory Results Last 24 Hours Test 01/22/17 10:15 01/22/17 15:30 01/22/17 18:04 01/23/17 01:40 White Blood Count 8.80 K/uL Red Blood Count 4.66 M/uL Hemoglobin 14.8 g/dL Hematocrit 41.5 % Mean Corpuscular Volume 89.1 fL Mean Corpuscular Hemoglobin 31.8 pg Mean Corpuscular Hemoglobin Concent 35.7 g/dl Platelet Count 105 K/uL Mean Platelet Volume 8.6 fL Neutrophils (%) (Auto) 85.5 % Lymphocytes (%) (Auto) 7.4 % Monocytes (%) (Auto) 6.7 % Eosinophils (%) (Auto) 0.1 % Basophils (%) (Auto) 0.1 % Neutrophils # (Auto) 7.52 K/uL Lymphocytes # (Auto) 0.65 K/uL Monocytes # (Auto) 0.59 K/uL Eosinophils # (Auto) 0.01 K/uL Basophils # (Auto) 0.01 K/uL RDW Standard Deviation 39.8 fL RDW Coefficient of Variation 12.4 % Immature Granulocyte % (Auto) 0.2 % Immature Granulocyte # (Auto) 0.02 K/uL Sodium Level 143 mmol/L Potassium Level 4.0 mmol/L Chloride Level 107 mmol/L Carbon Dioxide Level 27 mmol/L Anion Gap 9.0 mmol/L Blood Urea Nitrogen 14 mg/dl Creatinine 0.90 mg/dl Est Creatinine Clear Calc Drug Dose 85.4 ml/min Estimated GFR () 99.9 Estimated GFR (Non- 86.2 BUN/Creatinine Ratio 15.0 Random Glucose 120 mg/dl Calcium Level 9.1 mg/dl Total Bilirubin 0.6 mg/dl Direct Bilirubin 0.1 mg/dl Aspartate Amino Transf (AST/SGOT) 73 U/L Alanine Aminotransferase (ALT/SGPT) 130 U/L Alkaline Phosphatase 45 U/L Total Creatine Kinase 118 U/L 109 U/L 110 U/L Creatine Kinase MB 0.7 ng/ml 0.8 ng/ml 1.3 ng/ml Creatine Kinase MB Ratio 0.6 0.7 1.2 Troponin I < 0.015 ng/ml 0.023 ng/ml < 0.015 ng/ml Total Protein 7.3 gm/dl Albumin 3.8 gm/dl Lipase 131 U/L Prothrombin Time 10.6 SECONDS Prothromb Time International Ratio 1.0 Test 01/23/17 08:03 White Blood Count 4.56 K/uL Red Blood Count 4.82 M/uL Hemoglobin 15.3 g/dL Hematocrit 43.3 % Mean Corpuscular Volume 89.8 fL Mean Corpuscular Hemoglobin 31.7 pg Mean Corpuscular Hemoglobin Concent 35.3 g/dl Platelet Count 99 K/uL Mean Platelet Volume 8.3 fL Neutrophils (%) (Auto) 66.3 % Lymphocytes (%) (Auto) 22.4 % Monocytes (%) (Auto) 9.4 % Eosinophils (%) (Auto) 1.3 % Basophils (%) (Auto) 0.4 % Neutrophils # (Auto) 3.02 K/uL Lymphocytes # (Auto) 1.02 K/uL Monocytes # (Auto) 0.43 K/uL Eosinophils # (Auto) 0.06 K/uL Basophils # (Auto) 0.02 K/uL RDW Standard Deviation 40.9 fL RDW Coefficient of Variation 12.6 % Immature Granulocyte % (Auto) 0.2 % Immature Granulocyte # (Auto) 0.01 K/uL Red Blood Cell Morphology Unremarkable Activated Partial Thromboplast Time 25.2 SECONDS Partial Thromboplastin Ratio 1.0 Sodium Level 142 mmol/L Potassium Level 3.9 mmol/L Chloride Level 105 mmol/L Carbon Dioxide Level 30 mmol/L Anion Gap 7.0 mmol/L Blood Urea Nitrogen 13 mg/dl Creatinine 0.92 mg/dl Est Creatinine Clear Calc Drug Dose 84.4 ml/min Estimated GFR () 97.3 Estimated GFR (Non- 84.0 BUN/Creatinine Ratio 13.8 Random Glucose 114 mg/dl Calcium Level 8.9 mg/dl Total Bilirubin 0.7 mg/dl Aspartate Amino Transf (AST/SGOT) 41 U/L Alanine Aminotransferase (ALT/SGPT) 95 U/L Alkaline Phosphatase 47 U/L Total Protein 7.4 gm/dl Albumin 3.8 gm/dl Globulin 3.6 gm/dl Albumin/Globulin Ratio 1.1 Impression Patient is a 71 year old male with a history of GERD as well as CAD/NSTEMI presenting with atypical chest pain in the setting of daily alcohol use as well as frequent NSAIDs. Diff DX: GERD vs esophagitis vs spasm vs ulcer vs other. Plan 1. Keep NPO for now. 2. EGD with Dr. Mcnamara today. 3. Continue Protonix 40 mg BID. 4. Additional recommendations pending results of testing. Thank you for allowing us to participate in the care of this patient. If you have any questions or concerns, please do not hesitate to contact us. Agree with AYAKA Mcgarry as above Abd: Soft, NT, ND, +BS EGD showed no evidence of acute or chronic GI blood loss Continue current therapy
[2017-01-23 11:27] VITALS: BP 135/80; PULSE 72; TEMP 36.8; O2SAT 95
[2017-01-23 12:58] VITALS: O2SAT 98
--- NOTE | 2017-01-23 13:00 | Anesthesiology Progress Note ---
Anesthesia Post Op Note Date & Time Jan 23, 2017 at 13:00 Vital Signs Pain Intensity: 0 Vital Signs Past 12 Hours Date Time Temp Pulse Resp B/P Pulse Ox O2 Delivery O2 Flow Rate FiO2 01/23/17 12:58 98 Room Air 01/23/17 12:54 67 20 140/75 95 Room Air 01/23/17 12:39 67 20 177/73 98 Room Air 01/23/17 11:52 37.2 60 20 168/89 96 Room Air 01/23/17 11:27 36.8 72 18 135/80 95 01/23/17 08:49 98 Room Air 01/23/17 07:53 36.6 59 20 165/77 98 01/23/17 04:45 36.8 58 18 150/62 98 Room Air 01/23/17 04:14 Room Air Notes Mental Status: alert / awake / arousable, participated in evaluation Pt Amnestic to Procedure: Yes Nausea / Vomiting: adequately controlled Pain: adequately controlled Airway Patency, RR, SpO2: stable & adequate BP & HR: stable & adequate Hydration State: stable & adequate Anesthetic Complications: no major complications apparent
--- NOTE | 2017-01-23 13:05 | GI REPORT ---
Procedure Date: 01/23/2017 12:23 PM Procedure: Upper GI endoscopy Indications: Chest pain (non cardiac) Medicines: Monitored Anesthesia Care Complications: No immediate complications. Estimated Blood Loss: Estimated blood loss: none. Procedure: Pre-Anesthesia Assessment: - Prior to the procedure, a History and Physical was performed, and patient medications and allergies were reviewed. The patient's tolerance of previous anesthesia was also reviewed. The risks and benefits of the procedure and the sedation options and risks were discussed with the patient. All questions were answered, and informed consent was obtained. Prior Anticoagulants: The patient has taken aspirin, last dose was day of procedure. ASA Grade Assessment: III - A patient with severe systemic disease. After reviewing the risks and benefits, the patient was deemed in satisfactory condition to undergo the procedure. After obtaining informed consent, the endoscope was passed under direct vision. Throughout the procedure, the patient's blood pressure, pulse, and oxygen saturations were monitored continuously. The scope was introduced through the mouth, and advanced to the second part of duodenum. The upper GI endoscopy was accomplished without difficulty. The patient tolerated the procedure well. Findings: The esophagus was normal. A few sessile polyps with no stigmata of recent bleeding were found in the gastric fundus. A medium-sized, submucosal, non-circumferential mass with no bleeding and no stigmata of recent bleeding was found in the gastric antrum. The examined duodenum was normal. Impression: - Normal esophagus. - A few gastric polyps. 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 - Normal examined duodenum. - No specimens collected. Recommendation: - Resume previous diet. - Increase Prilosec (omeprazole) 40 mg PO BID. - Perform an upper endoscopic ultrasound (UEUS) at appointment to be scheduled. - Return patient to [facility] for ongoing care. Zak Mcnamara DO 01/23/2017 1:05:01 PM This report has been signed electronically. Note Initiated On: 01/23/2017 12:23 PM I attest to the content of the Intraoperative Record and orders documented therein, exceptions below
--- NOTE | 2017-01-23 13:07 | CARDIOLOGY CONSULTATION ---
DATE OF CONSULTATION: 01/23/2017 REFERRING PHYSICIAN: Osiel Umaña DO HISTORY OF PRESENT ILLNESS: Mr. Dagoberto Escalera is a 71-year-old gentleman with a known history of nonobstructive coronary disease, who was awoken from sleep for 3 nights in a row with symptoms of substernal chest discomfort. The patient states that a common scenario for him is being awakening from sleep at the early hours of the morning. He states that he awakens and does not have symptoms at the time awakening, but shortly thereafter develops an aching sensation in his precordium. This sometimes radiates to the back and is moderately severe in intensity. Mainly, there has been some associated nausea. There has not been any increased dyspnea. The episodes themselves last 45 minutes to 1 hour and not really by any antacids or other particular remedies. Afterwards, the patient feels quite fatigued. The patient has had similar symptoms in the past, all of which happen in the middle of the night. He is an active individual who does use a treadmill for approximately 20 minutes daily and is able to perform routine activities around the house as well as ascending his basement stairs several times in a given day without symptoms of chest discomfort or limiting dyspnea. The patient has been admitted to the hospital for evaluation of the same symptoms in the past. He generally can go several weeks without symptoms, but then experiences several nights of recurrences as he has this time around. The episodes themselves do not appear to be associated with the change in position. The patient has accustomed to sleeping in a recliner both for symptoms of back discomfort as well as a history of gastroesophageal reflux disease. There did not appear to be any additional activities, which would precipitate the symptoms. Currently, the patient is feeling well. In addition to the aforementioned chest pain, he has complained of worsening nausea recently and some worsening fatigue. PAST MEDICAL HISTORY: 1. Significant for the aforementioned nonobstructive coronary disease. The patient underwent coronary angiography in April 2016. At that time, he was noted to have approximately 30% to 40% lesion in the LAD, a right dominant system and nonobstructive luminal irregularities in the remaining vessel. The patient also underwent a cardiac perfusion study performed in July of 2016, which did not reveal any evidence of reversible ischemia. 2. Hypertension. 3. Hyperlipidemia. 4. Benign prostatic hypertrophy. 5. Gastroesophageal reflux disease. 6. Obstructive sleep apnea. OUTPATIENT MEDICATIONS: Include aspirin 81 mg daily, finasteride, garlic, lisinopril, omeprazole 40 mg daily, simvastatin 20 mg in the evening and tamsulosin 0.4 mg in the evening. MEDICAL ALLERGIES: No known medical allergies. FAMILY HISTORY: Significant for myocardial infarction in his father, who is 60 at the time. His mother had coronary artery disease developed later in life. He has siblings, who appear to be healthy by report. SOCIAL HISTORY: The patient has a remote tobacco abuse history, but has not smoked in 35 years. He drinks alcohol socially. He is currently retired from the [employer]. REVIEW OF SYSTEMS: A complete 10-system review of systems was performed and the pertinent positives are noted in the history of present illness. The patient did not report any symptoms of diarrhea recently. He denies any swelling in his lower extremities. He did not notice any palpitations, lightheadedness, or syncope. He does sleep in a chair as previously mentioned, but this alleviates mostly back pain that has had some effect on his reflux in the past. He does claim to be compliant with the CPAP therapy. One additional compliant is prominent fatigue. PHYSICAL EXAMINATION: GENERAL: The patient does not appear in acute distress. He is a pleasant individual who is alert and oriented. His mood and affect appeared normal. He answered all questions appropriately. VITAL SIGNS: Include blood pressure 165/77 with pulse of 59. HEENT: His sclerae are anicteric. His pupils are equal and reactive to light and accommodation. Extraocular movements were intact. Palpation of submandibular region did not reveal any significant lymphadenopathy. NECK: The carotids were palpable bilaterally. There were no bruits on auscultation. I did not appreciate any jugular venous distention. There was no thyromegaly. LUNGS: Auscultation of both lung finley revealed them to be clear. There were no rales, wheezes, or rhonchi. He had good respiratory effort without use of accessory muscles. CARDIAC: Evaluation reveals him to be in a regular rhythm with occasional ectopy. S1 and S2 appear to be normal overall. Heart sounds are somewhat distant, but I did not appreciate any murmurs on exam. PMI was not markedly displaced on palpation. ABDOMEN: Obese, but nontender. EXTREMITIES: Evaluation both wrists revealed radial pulses that were equal in intensity. There was no evidence of cyanosis or clubbing. There was no evidence of peripheral edema. There were no rashes appreciated on exam today. LABORATORY STUDIES: Obtained included a white cell count of 4.5, hemoglobin of 15.3, and platelet count of 99. Sodium is 142, potassium is 3.9, creatinine was 0.92, and BUN was 13. Serial cardiac biomarkers are all in the normal range. A 12-lead EKG was obtained at time of admission. This revealed the patient to be in normal sinus rhythm with nonspecific intraventricular conduction delay and a left bundle branch block. I personally reviewed this EKG, compared it to old EKGs, this EKG is unchanged. ASSESSMENT AND PLAN: 1. Noncardiac chest pain. The patient's symptoms have a character that is concerning for cardiac ischemia; however, he had several extended episodes over a few days and has no elevations in his cardiac biomarkers. Additionally, the patient has had an extensive evaluation in the past for the exact same symptoms, which include coronary angiography and perfusion imaging. There is no evidence that his symptoms, despite the recurrence, represent cardiac problem. At this point, I would defer any additional testing in the absence of new symptoms or a change in character. 2. Nonobstructive coronary artery disease. The patient should continue with aggressive secondary prevention according to published guidelines. He is currently taking a baby aspirin daily and is on a lipid agent. Consideration should be given to changing him to a more potent agent such as atorvastatin 20 mg daily.
[2017-01-23] MEDS ORDERED: CRFL PO (14:49)
--- NOTE | 2017-01-23 15:00 | Discharge Instructions ---
Discharge Instructions Date of Service Jan 23, 2017. Admission Reason for Admission: Cad,Chest Pain Discharge Discharge Diagnosis / Problem: Atypical chest pain Discharge Goals Goal(s): Decrease discomfort Activity Recommendations Activity Limitations: resume your previous activity . Instructions / Follow-Up Instructions / Follow-Up You were admitted to [facility] for chest pain. This is similar to previous pains that have been worked up extensively from a cardiac point of view. Your were evaluated by Cardiology and thought not to have cardiac chest pain given previous workups and similar sounding pain with negative heart enzymes (troponin). Dr Gann recommended a more potent statin such as atorvastatin 20 mg daily although his liver enzymes were mildly elevated during admission. You underwent EGD which showed normal esophagus, few sessile polyps with no stigmata of recent bleeding were found in the gastric fundus, medium-sized, submucosal non-circumferential mass, no bleeding or stigmata of recent bleeding in the gastric antrum, duodenum was normal. A follow up appointment for GI (Dr Zak Mcnamara) will be arranged but these findings are not thought to be contributory towards your pain. We recommend repeating liver function tests at follow up visit in approximately 1 week. AST 41, ALT 95 on discharge and trending down. Please follow up with your PCP in approximately 1 week to further investigate this chest pain as necessary. Current Hospital Diet Patient's current hospital diet: AHA Diet (Heart Healthy) Discharge Diet Recommended Diet: AHA Diet (Heart Healthy) Procedures Procedures Performed: EGD Pending Studies Studies pending at discharge: no Medical Emergencies . Who to Call and When: Medical Emergencies: If at any time you feel your situation is an emergency, please call 911 immediately. . Non-Emergent Contact Non-Emergency issues call your: Primary Care Provider . . "Provider Documentation" section prepared by Siddharth Ramirez. VTE Core Measure Inpt VTE Proph given/why not?: Unfractionated heparin SQ
--- NOTE | 2017-01-23 15:15 | Discharge Summary ---
Discharge Summary Date of Service Jan 23, 2017. (Siddharth Ramirez MD) Discharge Summary Admission Date: Jan 22, 2017 at 12:28 Discharge Date: Jan 23, 2017 Discharge Disposition: Home Principal Diagnosis: Atypical chest pain Immunizations: Have You Had Influenza Vaccine: N/A History of Tetanus Vaccine?: No History of Pneumococcal: No Pneumococcal Date: May 20, 2006 History of Hepatitis B Vaccine: No Procedures: EGD Consultations: Cardiology Gastroenterology (Siddharth Ramirez MD) Medication Reconciliation Continued Medications: Ascorbic Acid (Vitamin C 500 mg) 1 Chw Chw 500 MG PO BIDM Aspirin (Aspirin) 325 Mg Tab 81 MG PO DAILY Cranberry (Vaccinium Macrocarp (Cranberry) 300 Mg Tab 1 TAB PO QAM Finasteride (Proscar) 5 Mg Tab 5 MG PO HS, TAB Garlic (Garlic) 1,000 Mg Cap 1 CAP PO QPM Lisinopril (Zestril) 20 Mg Tab 20 MG PO QAM, TAB Multivitamin (Multivitamin) Tab 1 TAB PO QAM, TAB [place]-3 Fatty Acids (Fish Oil) 1 Cap Cap 1 CAP PO BIDM Omeprazole (Prilosec) 40 Mg Cap 40 MG PO DAILY, CAP Psyllium (Metamucil) 48.57 % Pow 1 TBS PO HS Simvastatin (Zocor) 20 Mg Tab 20 MG PO HS, TAB Tamsulosin Hcl (Flomax) 0.4 Mg Cap 0.4 MG PO HS, CAP Discharge Exam No longer having any chest pain. Similar to previous episodes extensively worked up in the past for cardiac disease. Recently increased PPI to BID. All other systems reviewed and otherwise negative Physical Exam: General Appearance: WD/WN, no apparent distress Eyes: normal inspection Neck: supple, no JVD Respiratory/Chest: chest non-tender, lungs clear, normal breath sounds, no respiratory distress, no accessory muscle use Cardiovascular: regular rate, rhythm, no murmur, normal peripheral pulses Abdomen / GI: normal bowel sounds, non tender, soft Extremities: no calf tenderness, no pedal edema, normal range of motion Neurologic/Psychiatric: billing checker II-XII nml as tested (no facial droop), no motor /sensory deficits (grossly), alert, oriented x 3 Skin: normal color, warm/dry, no rash (Siddharth Ramirez MD) Hospital Course Mr Escalera is a 71 year old male admitted to [facility] for chest pain. This is similar to previous pains that have been worked up extensively from a cardiac point of view. He was evaluated by Cardiology and thought not to have cardiac origin given previous workups and similar sounding pain with negative serial troponin. Dr Gann recommended a more potent statin such as atorvastatin 20 mg daily although his LFTs were mildly elevated during admission therefore this was not started at this time. He was also evaluated by GI and underwent EGD which showed normal esophagus, few sessile polyps with no stigmata of recent bleeding were found in the gastric fundus, medium-sized, submucosal non-circumferential mass, no bleeding or stigmata of recent bleeding in the gastric antrum, duodenum was normal. Follow up as below. Total Time Spent: Less than 30 minutes This includes examination of the patient, discharge planning, medication reconciliation, and communication with other providers. (Siddharth Ramirez MD) Discharge Instructions Please refer to the electronic Patient Visit Report (Discharge Instructions) for additional information. (Siddharth Ramirez MD) Follow-Up Recommend follow up with his PCP in 1 week with repeat LFTs and re-evaluation of his chest pain. He is to follow up with GI (Dr Zak Mcnamara) for these findings but not thought to be contributory towards his chest pains. (Siddharth Ramirez MD) Additional Copies To Zak Mcnamara D.O.; Rex Garcia M.D.; Andres Salcido M.D. History Resident Physician Supervision Note: I was present with Dr. Ramirez during the history and exam. I discussed the case with the resident and agree with the findings and plan as documented in the note. Any exceptions or clarifications are listed here. Pt seen and examined at bedside. At present, patient reports his chest pain has resolved and he is presently resting comfortably in bed. He reports no SOB, lightheadedness, vision/hearing changes, n/v/d/c, abd pain, waterbrash. (Beto Murrell MD) General Appearance: WD/WN, no apparent distress Respiratory: chest non-tender, lungs clear, normal breath sounds, no respiratory distress Cardiovascular: normal peripheral pulses, regular rate, rhythm, no edema, no murmur Gastrointestinal: normal bowel sounds, non tender, soft, no organomegaly (Beto Murrell MD) Assessment/Plan 71 y/o male w/ h/o CAD w/ NSTEMI () w/ atypical chest pain Chest pain, atypical - EKG and troponins WNL. Cardiology was consulted ([facility]) w / neg recent nuc stress and cath in April 2016 GERD - continue protonix as outpatient PO HTN - continue lisinopril HLD - continue statin therapy (Beto Murrell MD) Resident Tracking Resident Involvement: Resident Care Provided Care Provided: Adult Hospital Medicine (Siddharth Ramirez MD)
[2017-01-23 15:30] VITALS: BP 147/79; PULSE 64; TEMP 36.7; O2SAT 95
== END 2017-01-23 17:19 | disposition home or self-care (01) ==
LOC: ENRESERVTM → ENRESERVDT → C.EDB 10:03 → C.MED 12:28
PROVIDERS: ADMIT Internal Medicine; ATTEND Family Medicine
DX: R07.89 Other chest pain (principal); K21.9 Gastro-esophageal reflux disease without esophagitis; I10 Essential (primary) hypertension; E78.5 Hyperlipidemia, unspecified; I25.10 Atherosclerotic heart disease of native coronary artery without angina pectoris; I25.2 Old myocardial infarction; N40.0 Benign prostatic hyperplasia without lower urinary tract symptoms; Z82.49 Family history of ischemic heart disease and other diseases of the circulatory system; Z87.891 Personal history of nicotine dependence; Z79.82 Long term (current) use of aspirin

== ENCOUNTER → 2017-02-06 | Outpatient (CLI) | payer OTHER ==
[~2017-02-06] MED LIST changes: +ASCO500C43 PO; -ASPCH81X PO; +ASPI325T45 PO; -BIOFTAB24 PO; -PSYL1POW4 PO; +PSYL48.59 PO
[2017-02-06 09:37] LABS: BASO % 0.1 %; BASO ABS # 0.01 K/uL (0-0.2); COMPLETE YES; EOS % 0.4 %; HEMATOCRIT 42.9 % (42-52); IG% 0.3 %; LYMPH % 13.6 %; LYMPH ABS # 0.92 K/uL (1.2-3.4); MEAN CELL VOLUME 88.1 fL (80-100); MEAN CORPUSCULAR HEMOGLOBIN 30.8 pg (25-34); MEAN PLATELET VOLUME 8.5 fL (7.4-10.4); MONO % 6.8 %; NEUT % 78.8 %; PLATELET COUNT 114 K/uL (130-400); RED BLOOD COUNT 4.87 M/uL (4.7-6.1); WHITE BLOOD COUNT 6.75 K/uL (4.8-10.8)
[2017-02-06 09:51] LABS: AST/SGOT 15 U/L (15-37); BLOOD UREA NITROGEN 16 mg/dl (7-18); BUN/CREATININE RATIO 17.9 (10-20); CALCIUM 9.1 mg/dl (8.5-10.1); CARBON DIOXIDE 33 mmol/L (21-32); CHLORIDE 108 mmol/L (98-107); CREATININE 0.89 mg/dl (0.60-1.40); GLUCOSE 113 mg/dl (70-99); POTASSIUM 3.9 mmol/L (3.5-5.1); SODIUM 144 mmol/L (136-145)
[2017-02-06 10:04] LABS: ALB/GLOB RATIO 1.1 (0.9-2); ALKALINE PHOSPHATASE 44 U/L (45-117); ALT/SGPT 44 U/L (12-78); CHOLESTEROL 121 mg/dl (0-200); CHOLESTEROL/HDL RATIO 2.9; HDL CHOLESTEROL 42 mg/dl; LDL CHOLESTEROL CALCULATED 65 mg/dl; THYROID STIMULATING HORMONE 0.557 uIu/ml (0.300-4.500); TRIGLYCERIDES 72 mg/dl (0-150); VERY LOW DENSITY LIPOPROT CALC 14 mg/dl
== END | disposition home or self-care (01) ==
LOC: C.LAB 08:27
PROVIDERS: ATTEND Internal Medicine Pulmonary Disease
DX: I10 Essential (primary) hypertension (principal); E78.5 Hyperlipidemia, unspecified; D69.6 Thrombocytopenia, unspecified; G47.33 Obstructive sleep apnea (adult) (pediatric); K21.9 Gastro-esophageal reflux disease without esophagitis; I25.10 Atherosclerotic heart disease of native coronary artery without angina pectoris; R07.89 Other chest pain; N40.1 Benign prostatic hyperplasia with lower urinary tract symptoms

== ENCOUNTER → 2017-02-08 | Outpatient (CLI) | payer OTHER ==
[2017-02-09 08:56] LABS: ESTIMATED AVERAGE GLUCOSE 100 mg/dl; HA1C FLAG Normal (Normal)
--- NOTE | 2017-02-15 08:16 | CODING QUERY MEDICAL NECESSITY ---
CQSUPPORTING DIAGNOSIS NEEDED A supporting diagnosis is required for the test/procedure performed on this patient in order for us to be reimbursed by the patient's insurance. Please provide a supporting diagnosis for the following test/procedure listed below next to the test name along with your signature. *If there is no additional diagnosis for this patient that would support the following test/procedure please document that below next to the test/procedure. Test(s)/Procedure(s) that require a supporting diagnosis: DOS 02/08/17 VITAMIN B12 GLYCATED HEMOGLOBIN ORDERED BY GLORIA SIBLEY Provider Signature: Date: Thank you Alva Abraham Health Information Management Once completed, please kindly fax back to [phone] For questions please call [phone]
== END | disposition home or self-care (01) ==
LOC: C.LAB1850 14:55
PROVIDERS: ATTEND Physician Assistant Medical
DX: R53.83 Other fatigue (principal)

== ENCOUNTER → 2017-04-24 | Outpatient (CLI) | payer OTHER | END | disposition home or self-care (01) | LOC: C.LAB1850 10:49 | PROVIDERS: ATTEND Urology | DX: N40.0 Benign prostatic hyperplasia without lower urinary tract symptoms (principal) ==

== ENCOUNTER → 2017-06-05 | Outpatient (CLI) | payer OTHER | END | disposition home or self-care (01) | LOC: C.PATHSPEC 17:36 | PROVIDERS: ATTEND Dermatology | DX: D22.9 Melanocytic nevi, unspecified (principal) ==

== ENCOUNTER → 2017-08-07 | Outpatient (CLI) | payer OTHER ==
[2017-08-07 09:45] LABS: BASO % 0.4 %; BASO ABS # 0.03 K/uL (0-0.2); COMPLETE YES; EOS % 1.2 %; HEMATOCRIT 42.7 % (42-52); IG% 0.3 %; LYMPH % 17.8 %; MEAN CELL VOLUME 89.9 fL (80-100); MEAN CORPUSCULAR HEMOGLOBIN 31.6 pg (25-34); MEAN CORPUSCULAR HGB CONC 35.1 g/dl (32-36); MEAN PLATELET VOLUME 8.2 fL (7.4-10.4); MONO % 8.3 %; PLATELET COUNT 107 K/uL (130-400); RED BLOOD COUNT 4.75 M/uL (4.7-6.1); WHITE BLOOD COUNT 6.75 K/uL (4.8-10.8)
[2017-08-07 10:30] LABS: ALT/SGPT 35 U/L (12-78); AST/SGOT 21 U/L (15-37); BLOOD UREA NITROGEN 18 mg/dl (7-18); BUN/CREATININE RATIO 17.8 (10-20); CALCIUM 9.3 mg/dl (8.5-10.1); CARBON DIOXIDE 29 mmol/L (21-32); CHLORIDE 106 mmol/L (98-107); CREATININE 0.99 mg/dl (0.60-1.40); GLUCOSE 102 mg/dl (70-99); POTASSIUM 4.3 mmol/L (3.5-5.1); SODIUM 141 mmol/L (136-145)
[2017-08-07 10:41] LABS: ALB/GLOB RATIO 1.2 (0.9-2); ALKALINE PHOSPHATASE 47 U/L (45-117); CHOLESTEROL 157 mg/dl (0-200); CHOLESTEROL/HDL RATIO 2.7; HDL CHOLESTEROL 58 mg/dl; LDL CHOLESTEROL CALCULATED 82 mg/dl; TRIGLYCERIDES 83 mg/dl (0-150); VERY LOW DENSITY LIPOPROT CALC 17 mg/dl
[2017-08-07 11:38] LABS: LYME DISEASE AB IGG NEG (NEG); LYME DISEASE AB IGM NEG (NEG)
== END | disposition home or self-care (01) ==
LOC: C.LAB 09:05
PROVIDERS: ATTEND Internal Medicine Pulmonary Disease
DX: I10 Essential (primary) hypertension (principal); E78.5 Hyperlipidemia, unspecified; D69.6 Thrombocytopenia, unspecified; G47.33 Obstructive sleep apnea (adult) (pediatric); R53.83 Other fatigue

== ENCOUNTER → 2018-02-01 | Outpatient (CLI) | payer OTHER ==
[~2018-02-01] MED LIST changes: +ASPECOTC PO; -ASPI325T45 PO
[2018-02-01 09:35] LABS: BASO % 0.4 %; BASO ABS # 0.02 K/uL (0-0.2); EOS % 0.9 %; EOS ABS # 0.04 K/uL (0-0.5); HEMATOCRIT 43.8 % (42-52); IG# 0.02 K/uL (0.00-0.02); LYMPH % 18.3 %; LYMPH ABS # 0.84 K/uL (1.2-3.4); MEAN CORPUSCULAR HEMOGLOBIN 30.5 pg (25-34); MEAN CORPUSCULAR HGB CONC 34.2 g/dl (32-36); MEAN PLATELET VOLUME 8.4 fL (7.4-10.4); MONO % 10.9 %; NEUT % 69.1 %; NEUT ABS # 3.18 K/uL (1.4-6.5); PLATELET COUNT 111 K/uL (130-400); RED CELL DISTRIBUTION WIDTH SD 41.7 fL (36.4-46.3)
[2018-02-01 10:06] LABS: ALBUMIN 3.9 gm/dl (3.4-5.0); ALT/SGPT 41 U/L (12-78); AST/SGOT 25 U/L (15-37); BLOOD UREA NITROGEN 11 mg/dl (7-18); CALCIUM 9.2 mg/dl (8.5-10.1); CARBON DIOXIDE 28 mmol/L (21-32); CREATININE 0.97 mg/dl (0.60-1.40); GLUCOSE 114 mg/dl (70-99); SODIUM 140 mmol/L (136-145)
[2018-02-01 10:09] LABS: ALKALINE PHOSPHATASE 45 U/L (45-117); CHOLESTEROL 130 mg/dl (0-200); LDL CHOLESTEROL CALCULATED 70 mg/dl; TOTAL PROTEIN 7.3 gm/dl (6.4-8.2)
== END | disposition home or self-care (01) ==
LOC: C.LAB 08:14
PROVIDERS: ATTEND Internal Medicine Pulmonary Disease
DX: N40.0 Benign prostatic hyperplasia without lower urinary tract symptoms (principal); I10 Essential (primary) hypertension; R53.83 Other fatigue; G47.33 Obstructive sleep apnea (adult) (pediatric); E78.5 Hyperlipidemia, unspecified

== ENCOUNTER → 2018-02-12 | Outpatient (CLI) | payer OTHER | END | disposition home or self-care (01) | LOC: C.LAB1850 09:54 | PROVIDERS: ATTEND Urology | DX: N40.1 Benign prostatic hyperplasia with lower urinary tract symptoms (principal) ==

== ENCOUNTER 2018-02-25 06:34 | Emergency (ER) | payer OTHER ==
[~2018-02-25] VITALS: Ht 167.6 cm; Wt 106.5 kg
[2018-02-25 06:40] VITALS: TEMP 36.8; Ht 167.6 cm; Wt 106.5 kg
[2018-02-25 07:06] LABS: HEMATOCRIT 42.4 % (42-52); HEMOGLOBIN 14.7 g/dL (14.0-18.0); MEAN CELL VOLUME 89.1 fL (80-100); MEAN CORPUSCULAR HEMOGLOBIN 30.9 pg (25-34); MEAN CORPUSCULAR HGB CONC 34.7 g/dl (32-36); RED CELL DISTRIBUTION WIDTH CV 12.9 % (11.5-14.5); RED CELL DISTRIBUTION WIDTH SD 41.5 fL (36.4-46.3); WHITE BLOOD COUNT 5.31 K/uL (4.8-10.8)
[2018-02-25 07:24] LABS: ALBUMIN 3.9 gm/dl (3.4-5.0); CALCIUM 9.1 mg/dl (8.5-10.1); CREATININE 0.84 mg/dl (0.60-1.40); POTASSIUM 3.8 mmol/L (3.5-5.1)
[2018-02-25 07:27] LABS: TOTAL PROTEIN 7.3 gm/dl (6.4-8.2)
--- NOTE | 2018-02-25 07:42 | DIAGNOSTIC IMAGING REPORT ---
CT SCAN OF THE ABDOMEN AND PELVIS WITHOUT IV CONTRAST CLINICAL HISTORY: Right-sided abdominal pain. Cramping. COMPARISON STUDY: Abdominal CT dated 05/20/2007 TECHNIQUE: CT scan of the abdomen and pelvis is performed from the lung bases to the proximal femora. Images are reviewed in the axial, sagittal, and coronal planes. IV contrast was not administered for this examination as per the referring clinician. Note that the examination was performed in suboptimal fashion without oral and IV contrast. The examination is also degraded by motion artifact. A dose lowering technique was utilized adhering to the principles of ALARA. CT DOSE: 1587.13 mGy.cm FINDINGS: Lung bases: The heart is enlarged and without pericardial effusion. There are coronary artery calcifications. A tiny hiatal hernia is identified. The lung bases are clear noting bibasilar scarring/atelectasis. Liver: The unenhanced liver is enlarged measuring 19.5 cm in length. The liver is otherwise normal in contour and attenuation. There is no intrahepatic biliary ductal dilatation. Gallbladder: Unremarkable. Spleen: The spleen is enlarged, measuring 14.5 cm and length. Pancreas: Unremarkable. Adrenal glands: Unremarkable. Kidneys: The unenhanced kidneys are normal in size and without hydronephrosis. There are no renal calculi identified. There is no evidence of contour deforming renal mass lesion. Abdominal vasculature: There is advanced atherosclerotic calcification of the abdominal aorta. There is a bilobed aneurysm of the infrarenal abdominal aorta which measures 3.3 x 3.5 cm (AP times transverse). Bowel: There is mild colonic diverticulosis without CT evidence of acute diverticulitis. No bowel obstruction is seen. The appendix is well-visualized and normal. A 2.8 cm lipoma is noted in the distal stomach. Peritoneum: There is no intraperitoneal free air or abdominal ascites. There is a fat-containing umbilical hernia. Lymphadenopathy: None. Pelvic viscera: The bladder, prostate, and seminal vesicles are normal as visualized. There is a fat-containing left inguinal hernia. Skeletal structures: The skeletal structures are osteopenic. Mild lumbosacral spondylosis is observed. No lytic or blastic lesions are seen. IMPRESSION: 1. There are no acute infectious or inflammatory findings in the abdomen or pelvis. 2. Hepatosplenomegaly. 3. 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 4. Cardiomegaly. 5. Mild colonic diverticulosis without CT evidence of acute diverticulitis. 6. Additional findings as above. Electronically signed by: Nicola Calvin M.D. 02/25/2018 7:41 AM Dictated Date/Time: 02/25/2018 7:34 AM
[2018-02-25] MEDS ORDERED: ACET-1256 PO (08:01)
[2018-02-25 08:07] LABS: BASO % 0.4 %; BASO ABS # 0.02 K/uL (0-0.2); EOS % 1.1 %; EOS ABS # 0.06 K/uL (0-0.5); IG# 0.02 K/uL (0.00-0.02); LYMPH % 19.6 %; LYMPH ABS # 1.04 K/uL (1.2-3.4); MEAN PLATELET VOLUME 8.1 fL (7.4-10.4); MONO % 8.9 %; MONO ABS # 0.47 K/uL (0.11-0.59); NEUT % 69.6 %; PLATELET COUNT 96 K/uL (130-400)
[2018-02-25 10:49] VITALS: BP 159/82; PULSE 57; O2SAT 97
--- NOTE | 2018-02-25 10:54 | DIAGNOSTIC IMAGING REPORT ---
ULTRASOUND RIGHT UPPER QUADRANT ABDOMEN CLINICAL HISTORY: Right upper quadrant abdominal pain. COMPARISON STUDY: Abdominal CT dated 02/25/2018. TECHNIQUE: Real-time, grayscale, and color flow sonography of the right upper quadrant of the abdomen was performed. Images are reviewed in the transverse and longitudinal planes. FINDINGS: Liver: The liver is mildly enlarged. Echotexture is mildly heterogeneous. There is no intrahepatic biliary ductal dilatation. The main portal vein is patent. Gallbladder: The gallbladder is normal in appearance. No gallstones are identified. There is no gallbladder wall thickening or pericholecystic fluid. A sonographic Ramachandran's sign is reportedly absent. The common bile duct measures up to 0.5 cm in diameter. Pancreas: Visualized portions of the pancreatic head and body are normal in appearance. Right kidney: Survey images of the right kidney demonstrate normal size and echotexture. There is no hydronephrosis. A 7 mm cyst is incidentally noted in the upper pole. Ascites: None. IMPRESSION: 1. No acute sonographic abnormality is seen in the right upper quadrant. No gallstones are identified. 2. Mild hepatomegaly. Electronically signed by: Nicola Calvin M.D. 02/25/2018 10:52 AM Dictated Date/Time: 02/25/2018 10:50 AM
[2018-02-25] MEDS ORDERED: OXYC1TAB3 PO (11:18)
--- NOTE | 2018-02-25 11:21 | EMERGENCY ROOM VISIT NOTE ---
History Report prepared by Yue: Leeroy Miller Under the Supervision of: Dr. Andres Mcmahon M.D. First contact with patient: 06:45 Chief Complaint: ABDOMINAL PAIN Stated Complaint: STOMACH CRAMPS,NAUSEA Nursing Triage Summary: "Codie been experiencing terrible bouts of abdominal pain and cramping since Monday". pt reports symptoms have happened for several days and gone away and then returned for several days and went away. pt states this morning he woke up with severe pain and cramping and nausea again. 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 pt reports he was told that this tumor would not cause his cramping or nausea. History of Present Illness The patient is a 72 year old male who presents to the Emergency Room with complaints of waxing and waning RLQ abdominal pain for the past 6 days. Patient describes the pain when he woke 4 hours ago as a 10/10 in severity. He states that his pain in the ER is a 3-4/10 in severity. Patient states that the pain radiates to his "back right above his waist", his chest, and "his entire stomach ". He adds that he has chronic headaches and that they are accompanied with a stiff neck. Patient states that he has had nausea and chest pain for a year. Patient states that he had an EUS procedure done [address] Delgadillo. Patient adds that he had no ill effects from the procedure but had a sore throat for "a couple of days". He states that he had another EUS procedure 1 year ago. Patient states that he receives the EUS procedures because of a small , noncancerous mass that was found in the lower part of his stomach. He states that he was in the ER December of last year for complaints of chest pain. He states that that during that visit they ruled out any heart problems. Pertinent past medical history includes prostatitis and GERD. He adds that he has chronic problems with urinating. He adds that he had a "mild heart attack" previously but that it did not require a stent be placed. Patient states that he has high blood pressure and cholesterol. Patient states that his family doctor is Dr. Salcido. He states that his last visit with Dr. Salcido was 2 weeks ago. Pt denies LOC, fevers, chills, diaphoresis, visual changes, breathing difficulties, vomiting, melena, hematochezia, urinary symptoms, numbness, weakness, lymphadenopathy, rash, or other complaints. Source of History: patient Onset: 6 days ago Position: abdomen (RLQ) Symptom Intensity: 3-02/06 and 08/08 Timing: waxes/wanes Associated Symptoms: + headache, + sorethroat, + neck pain, + chest pain, + nausea, + back pain Review of Systems See HPI for pertinent positives and negatives. A total of ten systems were reviewed and were otherwise negative. Past Medical & Surgical Medical Problems: (1) CAD (coronary artery disease) (2) Chest pain (3) Chronic back pain (4) Headache (5) Hypercholesteremia (6) Hypertension (7) Neck pain (8) Non-STEMI (non-ST elevated myocardial infarction) Family History FH: myocardial infarction Heart disease Social History Smoking Status: Former Smoker Alcohol Use: other Drug Use: none Marital Status: Housing Status: lives with family Occupation Status: retired Current/Historical Medications Scheduled Acetaminophen (Tylenol), 1,000 MG PO DIRECTED Ascorbic Acid (Vitamin C 500 mg), 500 MG PO BIDM Aspirin (Aspirin), 81 MG PO DAILY Cranberry (Vaccinium Macrocarp (Cranberry), 1 TAB PO QAM Finasteride (Proscar), 5 MG PO HS Garlic (Garlic), 1 CAP PO QPM Lisinopril (Zestril), 20 MG PO QAM Multivitamin (Multivitamin), 1 TAB PO QAM Bowen-3 Fatty Acids (Fish Oil), 1 CAP PO BIDM Omeprazole (Prilosec), 40 MG PO DAILY Psyllium (Metamucil), 1 TBS PO HS Simvastatin (Zocor), 20 MG PO HS Tamsulosin Hcl (Flomax), 0.4 MG PO HS Scheduled PRN Oxycodone Ir (Roxicodone Ir), 1-2 TAB PO Q4H PRN for Pain Allergies Coded Allergies: NO KNOWN DRUG ALLERGIES (Verified Allergy, Unknown, ., 02/25/18) Physical Exam Vital Signs Date Time Temp Pulse Resp B/P (MAP) Pulse Ox O2 Delivery O2 Flow Rate FiO2 02/25/18 10:49 57 18 159/82 97 Room Air 02/25/18 09:40 54 18 148/73 96 Room Air 02/25/18 08:16 59 18 186/82 96 Room Air 02/25/18 07:13 55 02/25/18 06:40 36.8 61 20 167/109 95 Room Air Physical Exam GENERAL: Awake, alert, well-appearing, in no distress HENT: Normocephalic, atraumatic. Oropharynx unremarkable. EYES: Normal conjunctiva. Sclera non-icteric. NECK: Supple. No nuchal rigidity. FROM. No masses. RESPIRATORY: Clear to auscultation. No wheezes. No rales. Normal respiratory effort. CARDIAC: Normal rate. Normal rhythm. No murmurs. No rubs. Extremities warm and well perfused. Pulses equal. No JVD. GI: Soft, non-distended. Moderate RLQ and mild LLQ tenderness to palpation. No rebound or guarding. No masses. RECTAL: Deferred. MUSCULOSKELETAL: Atraumatic. Chest examination reveals no tenderness. The back is symmetrical on inspection without obvious abnormality. There is no CVA tenderness to palpation. No joint edema. LOWER EXTREMITIES: Calves are equal size bilaterally and non-tender. No edema. No discoloration. NEURO: Normal sensorium. No sensory or motor deficits noted. SKIN: No rash or jaundice noted. Medical Decision & Procedures ER Provider Diagnostic Interpretation: Radiology results as stated below per my review and radiologist interpretation: ULTRASOUND RIGHT UPPER QUADRANT ABDOMEN CLINICAL HISTORY: Right upper quadrant abdominal pain. COMPARISON STUDY: Abdominal CT dated 02/25/2018. TECHNIQUE: Real-time, grayscale, and color flow sonography of the right upper quadrant of the abdomen was performed. Images are reviewed in the transverse and longitudinal planes. FINDINGS: Liver: The liver is mildly enlarged. Echotexture is mildly heterogeneous. There is no intrahepatic biliary ductal dilatation. The main portal vein is patent. Gallbladder: The gallbladder is normal in appearance. No gallstones are identified. There is no gallbladder wall thickening or pericholecystic fluid. A sonographic Ramachandran's sign is reportedly absent. The common bile duct measures up to 0.5 cm in diameter. Pancreas: Visualized portions of the pancreatic head and body are normal in appearance. Right kidney: Survey images of the right kidney demonstrate normal size and echotexture. There is no hydronephrosis. A 7 mm cyst is incidentally noted in the upper pole. Ascites: None. IMPRESSION: 1. No acute sonographic abnormality is seen in the right upper quadrant. No gallstones are identified. 2. Mild hepatomegaly. Electronically signed by: Nicola Calvin M.D. 02/25/2018 10:[address] SCAN OF THE ABDOMEN AND PELVIS WITHOUT IV CONTRAST CLINICAL HISTORY: Right-sided abdominal pain. Cramping. COMPARISON STUDY: Abdominal CT dated 05/20/2007 TECHNIQUE: CT scan of the abdomen and pelvis is performed from the lung bases to the proximal femora. Images are reviewed in the axial, sagittal, and coronal planes. IV contrast was not administered for this examination as per the referring clinician. Note that the examination was performed in suboptimal fashion without oral and IV contrast. The examination is also degraded by motion artifact. A dose lowering technique was utilized adhering to the principles of ALARA. CT DOSE: 1587.13 mGy.cm FINDINGS: Lung bases: The heart is enlarged and without pericardial effusion. There are coronary artery calcifications. A tiny hiatal hernia is identified. The lung bases are clear noting bibasilar scarring/atelectasis. Liver: The unenhanced liver is enlarged measuring 19.5 cm in length. The liver is otherwise normal in contour and attenuation. There is no intrahepatic biliary ductal dilatation. Gallbladder: Unremarkable. Spleen: The spleen is enlarged, measuring 14.5 cm and length. Pancreas: Unremarkable. Adrenal glands: Unremarkable. Kidneys: The unenhanced kidneys are normal in size and without hydronephrosis. There are no renal calculi identified. There is no evidence of contour deforming renal mass lesion. Abdominal vasculature: There is advanced atherosclerotic calcification of the abdominal aorta. There is a bilobed aneurysm of the infrarenal abdominal aorta which measures 3.3 x 3.5 cm (AP times transverse). Bowel: There is mild colonic diverticulosis without CT evidence of acute diverticulitis. No bowel obstruction is seen. The appendix is well-visualized and normal. A 2.8 cm lipoma is noted in the distal stomach. Peritoneum: There is no intraperitoneal free air or abdominal ascites. There is a fat-containing umbilical hernia. Lymphadenopathy: None. Pelvic viscera: The bladder, prostate, and seminal vesicles are normal as visualized. There is a fat-containing left inguinal hernia. Skeletal structures: The skeletal structures are osteopenic. Mild lumbosacral spondylosis is observed. No lytic or blastic lesions are seen. IMPRESSION: 1. There are no acute infectious or inflammatory findings in the abdomen or pelvis. 2. Hepatosplenomegaly. 3. 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 4. Cardiomegaly. 5. Mild colonic diverticulosis without CT evidence of acute diverticulitis. 6. Additional findings as above. Electronically signed by: Nicola Calvin M.D. 02/25/2018 7:41 AM Laboratory Results 02/25/18 06:54 Red Blood Count 4.76, Mean Corpuscular Volume 89.1, Mean Corpuscular Hemoglobin 30.9, Mean Corpuscular Hemoglobin Concent 34.7, Mean Platelet Volume 8.1, Neutrophils (%) (Auto) 69.6, Lymphocytes (%) (Auto) 19.6, Monocytes (%) (Auto) 8.9, Eosinophils (%) (Auto) 1.1, Basophils (%) (Auto) 0.4, Neutrophils # (Auto) 3.70, Lymphocytes # (Auto) 1.04, Monocytes # (Auto) 0.47, Eosinophils # (Auto) 0.06, Basophils # (Auto) 0.02 02/25/18 06:54 Test 02/25/18 06:54 02/25/18 07:30 White Blood Count 5.31 K/uL (4.8-10.8) Red Blood Count 4.76 M/uL (4.7-6.1) Hemoglobin 14.7 g/dL (14.0-18.0) Hematocrit 42.4 % (42-52) Mean Corpuscular Volume 89.1 fL (80-100) Mean Corpuscular Hemoglobin 30.9 pg (25-34) Mean Corpuscular Hemoglobin Concent 34.7 g/dl (32-36) Platelet Count 96 K/uL (130-400) Mean Platelet Volume 8.1 fL (7.4-10.4) Neutrophils (%) (Auto) 69.6 % Lymphocytes (%) (Auto) 19.6 % Monocytes (%) (Auto) 8.9 % Eosinophils (%) (Auto) 1.1 % Basophils (%) (Auto) 0.4 % Neutrophils # (Auto) 3.70 K/uL (1.4-6.5) Lymphocytes # (Auto) 1.04 K/uL (1.2-3.4) Monocytes # (Auto) 0.47 K/uL (0.11-0.59) Eosinophils # (Auto) 0.06 K/uL (0-0.5) Basophils # (Auto) 0.02 K/uL (0-0.2) RDW Standard Deviation 41.5 fL (36.4-46.3) RDW Coefficient of Variation 12.9 % (11.5-14.5) Immature Granulocyte % (Auto) 0.4 % Immature Granulocyte # (Auto) 0.02 K/uL (0.00-0.02) Anion Gap 3.0 mmol/L (3-11) Est Creatinine Clear Calc Drug Dose 92.2 ml/min Estimated GFR () 102.1 Estimated GFR (Non- 88.1 BUN/Creatinine Ratio 24.9 (10-20) Calcium Level 9.1 mg/dl (8.5-10.1) Total Bilirubin 0.4 mg/dl (0.2-1) Direct Bilirubin 0.1 mg/dl (0-0.2) Aspartate Amino Transf (AST/SGOT) 29 U/L (15-37) Alanine Aminotransferase (ALT/SGPT) 57 U/L (12-78) Alkaline Phosphatase 43 U/L (45-117) Total Protein 7.3 gm/dl (6.4-8.2) Albumin 3.9 gm/dl (3.4-5.0) Lipase 159 U/L (73-393) Urine Color YELLOW Urine Appearance CLEAR (CLEAR) Urine pH 8.5 (4.5-7.5) Urine Specific Mck[place]on 1.012 (1.000-1.030) Urine Protein NEG (NEG) Urine Glucose (UA) NEG (NEG) Urine Ketones NEG (NEG) Urine Occult Blood NEG (NEG) Urine Nitrite NEG (NEG) Urine Bilirubin NEG (NEG) Urine Urobilinogen NEG (NEG) Urine Leukocyte Esterase SMALL (NEG) Urine WBC (Auto) 1-5 /hpf (0-5) Urine RBC (Auto) 0-4 /hpf (0-4) Urine Hyaline Casts (Auto) 0 /lpf (0-5) Urine Epithelial Cells (Auto) 0-5 /lpf (0-5) Urine Bacteria (Auto) NEG (NEG) Laboratory results reviewed by me Medications Administered Medications (Trade) Dose Ordered Sig/Marilee Route Start Time Stop Time Status Last Admin Dose Admin Oxycodone HCl (Roxicodone Immediate Rel 5MG Home Pack) 1 homepack UD ONCE PO 02/25/18 11:30 02/25/18 11:31 DC 02/25/18 11:24 1 HOMEPACK ECG Per My Interpretation Indication: abdominal pain Rate (beats per minute): 58 Rhythm: sinus bradycardia Findings: PAC, no acute ischemic change, left axis deviation, other (Non- specific interventricular block) ED Course 0700: The patient was evaluated in room B10. A complete history and physical exam was performed. 0817: I updated the patient. He is getting a RUQ US. 1130: Oxycodone HCl 1 homepack PO 1132: I reevaluated the patient. Discussed results and discharge instructions. He verbalized understanding and agreement. The patient is ready for discharge. Medical Decision Prior records/ancillary studies reviewed. Triage Nursing notes reviewed and agree them. The patient's history was concerning for abdominal pain. Differential diagnosis: Etiologies such as appendicitis, diverticulitis, PUD, biliary pathology, UTI, pancreatitis, obstruction, mesenteric ischemia, aortic pathology, infections, inflammatory bowel disease, renal colic, as well as others were entertained. Physical examination findings: As above. ER treatment provided: Patient declined analgesia as he drove himself to the ER On reassessment the patient felt better. Diagnostics interpreted by me: ECG: Normal as above The labs revealed an unremarkable CBC and chemistry panel. Urinalysis negative. Imaging studies: CT scan and ultrasound as above The patient has had "a long course with GI issues. His recent endoscopy did not reveal any significant urgent findings. He is being worked up. He is ultrasound and CT scan today were rather unremarkable. The exact etiology is not known at this time. I discussed conservative treatment with him. He notes over the last few days he has had some intermittent episodes of her quite uncomfortable and over the counter analgesia was ineffective. I did offer him a small amount of prescription pain medication. He accepted. 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 If he worsens in any way he will be back. By the evaluation outlined above emergent etiologies such as appendicitis, diverticulitis, PUD, biliary pathology, UTI, pancreatitis, obstruction, mesenteric ischemia, aortic pathology, infections, inflammatory bowel disease, renal colic, as well as others were deemed relatively unlikely. The patient was informed about the findings as listed above. All questions were answered and he was very pleased with the treatment. Return instructions were outlined and the patient was discharged in stable condition. Outpatient prescription management: Oxy IR 5mg 1-2 po Q4 hrs prn Referral: The patient was referred back to their primary care physician for follow-up in 2 to 3 days for a recheck of the current condition. [place] Drug Monitoring Program Search Results: no issues identified Medication Reconcilliation Current Medication List: was personally reviewed by me Blood Pressure Screening Patient's blood pressure: Elevated blood pressure Blood pressure disposition: Referred to PCP Impression Primary Impression: Right sided abdominal pain Scribe Attestation The scribe's documentation has been prepared under my direction and personally reviewed by me in its entirety. I confirm that the note above accurately reflects all work, treatment, procedures, and medical decision making performed by me. Departure Information Dispostion Home / Self-Care Prescriptions Oxycodone Ir (Roxicodone Ir) 5 Mg Tab 1-2 TAB PO Q4H Y for Pain, #12 TAB Prov: Andres Mcmahon MD 02/25/18 Referrals Andres Salcido M.D. (PCP) Forms Call Back Authorization, HOME CARE DOCUMENTATION FORM, IMPORTANT VISIT INFORMATION Patient Instructions [facility] Additional Instructions ABDOMINAL PAIN INSTRUCTIONS: DO NOT drive, drink alcohol, operate machinery, or perform dangerous activities today. You were given medications in the ER that can affect your ability to safely function or operate a vehicle. Oxycodone (OxyIR) 5mg: Take 1-2 pills every four hours for breakthrough pain. Avoid alcohol, operating machinery or dangerous equipment, working on ladders or roofs, DRIVING, or situations where being under the influence may be dangerous. It is recommended to use an yaqd-ozi-vqwbjzh stool softener such as Colace, 100mg twice daily while taking this medication to avoid constipation. Acetaminophen(Tylenol) may be used for fever or pain. Use 1000mg every six hours as needed. Avoid using more than 4000mg in a 24 hour period. Rest and drink plenty of fluids as tolerated. Slow sips of water or sports drinks are recommended instead of large amounts all at once. Continue current medications. Once your stomach is settled start with a clear liquid diet (jello, soup broth, etc.) and then advance as tolerated. You should avoid full, heavy meals for about 24 hrs from the time your symptoms resolved. Return to the ER immediately for worsening or persistent abdominal pain, vomiting, fevers, chest pains, difficulty breathing, black or bloody stools, worsening of your condition, or as needed. Follow up with your primary physician OR GI doctor in 2-3 days for a recheck of your current condition.
[2018-02-25] MEDS ORDERED: OXYCODONE IR HOME PACK PO ONE (11:30)
== END 2018-02-25 11:15 | disposition home or self-care (01) ==
LOC: C.EDB 06:35
DX: R10.31 Right lower quadrant pain (principal); I25.10 Atherosclerotic heart disease of native coronary artery without angina pectoris; E78.00 Pure hypercholesterolemia, unspecified; I10 Essential (primary) hypertension; I25.2 Old myocardial infarction; Z87.891 Personal history of nicotine dependence; Z79.82 Long term (current) use of aspirin; Z79.899 Other long term (current) drug therapy

== ENCOUNTER → 2018-03-08 | Outpatient (CLI) | payer OTHER ==
[~2018-03-08] MED LIST changes: +ACET-1256 PO; +OXYC1TAB3 PO
--- NOTE | 2018-03-08 14:00 | DIAGNOSTIC IMAGING REPORT ---
HEPATOBILIARY HIDA IMAGING CLINICAL HISTORY: Right upper quadrant abdominal pain COMPARISON STUDY: Biliary ultrasound dated 02/25/2018 FINDINGS: The patient was injected with 5.5 mCi of technetium 99m Choletec. Anterior imaging was performed. Hepatic excretion was unremarkable in appearance. There was normal passage of activity into small bowel. The gallbladder was first visualized at 10 minute image. IMPRESSION: Normal study. No evidence of cystic duct obstruction. Electronically signed by: Bart Coronel M.D. 03/08/2018 1:59 PM Dictated Date/Time: 03/08/2018 1:57 PM
== END | disposition home or self-care (01) ==
LOC: C.NUCL 12:14
PROVIDERS: ATTEND Internal Medicine Pulmonary Disease
DX: K31.89 Other diseases of stomach and duodenum (principal)

== ENCOUNTER 2022-09-02 05:52 | Observation (INO) ==
--- NOTE | 2022-07-28 13:04 | PAT Medication Instructions ---
Medication Instructions Date of Service July 28, 2022 Home Medications Medication Instructions Recorded [id number]-lvqsykotjwcfp-jmovdwge 1 cap PO Q6H PRN Migraine Headache 05/10/21 50 mg-325 mg-40 mg capsule #30 caps indomethacin 50 mg capsule 50 mg PO TID PRN Migraine Headache 05/10/21 #30 caps nitroglycerin 0.4 mg sublingual 0.4 mg sublingual Q5M PRN chest 09/16/21 tablet pain #25 tabs omeprazole 40 mg capsule,delayed 40 mg PO QAM #90 caps 11/10/21 release finasteride 5 mg tablet 5 mg PO HS #90 tabs 03/10/22 tamsulosin 0.4 mg capsule 0.8 mg PO HS #90 caps 03/10/22 ketoconazole 2 % topical cream 1 applic topical .COMPLEX #180 03/21/22 grams lisinopril 40 mg tablet 40 mg PO PM #90 tabs 05/16/22 rosuvastatin 20 mg tablet 20 mg PO PM #90 tabs 05/16/22 amlodipine 5 mg tablet 5 mg PO QAM #90 tabs 07/21/22 hydrochlorothiazide 25 mg tablet 25 mg PO QAM #90 tabs 07/21/22 ascorbic acid (vitamin C) 500 mg tablet (Vitamin C) 500 mg PO BID multivitamin 1 tab PO QAM omega 0-ark-ffn-fish oil 300 mg-108 mg-162 mg-600 mg capsule,delay rel (Fish Oil) 1 cap PO BID psyllium husk 3.4 gram/5.4 gram oral powder (Metamucil) 1 tbsp PO BID calcium carbonate 600 mg-vitamin D3 20 mcg (800 unit) tablet 1 tab PO BID garlic 1,000 mg capsule 1,000 mg PO QDD cranberry extract 500 mg tablet 500 mg PO QAM nkkbhtzhxw-wtoadseuhbzue-wxnsusxt 50 mg-325 mg-40 mg capsule 1 cap PO Q6H PRN indomethacin 50 mg capsule 50 mg PO TID PRN nitroglycerin 0.4 mg sublingual tablet 0.4 mg sublingual Q5M PRN omeprazole 40 mg capsule,delayed release 40 mg PO QAM finasteride 5 mg tablet 5 mg PO HS tamsulosin 0.4 mg capsule 0.8 mg PO HS ketoconazole 2 % topical cream 1 applic topical .COMPLEX lisinopril 40 mg tablet 40 mg PO PM rosuvastatin 20 mg tablet 20 mg PO PM amlodipine 5 mg tablet 5 mg PO QAM hydrochlorothiazide 25 mg tablet 25 mg PO QAM aspirin 81 mg tablet,delayed release 81 mg PO QAM Continue as directed nitroglycerin 0.4 mg sublingual tablet 0.4 mg sublingual Q5M PRN(if needed) ASK your surgeon for instructions [id number]-vdtkptztuchwf-cbboexwi 50 mg-325 mg-40 mg capsule 1 cap PO Q6H PRN indomethacin 50 mg capsule 50 mg PO TID PRN STOP taking 2 weeks before surgery omega 7-fwj-rhz-fish oil 300 mg-108 mg-162 mg-600 mg capsule,delay rel (Fish Oil) 1 cap PO BID garlic 1,000 mg capsule 1,000 mg PO QDD cranberry extract 500 mg tablet 500 mg PO QAM STOP taking 24 hours before surgery ketoconazole 2 % topical cream 1 applic topical .COMPLEX DO NOT take the morning of surgery ascorbic acid (vitamin C) 500 mg tablet (Vitamin C) 500 mg PO BID multivitamin 1 tab PO QAM psyllium husk 3.4 gram/5.4 gram oral powder (Metamucil) 1 tbsp PO BID calcium carbonate 600 mg-vitamin D3 20 mcg (800 unit) tablet 1 tab PO BID hydrochlorothiazide 25 mg tablet 25 mg PO QAM Take morning of surgery With a small sip of water, OTHERWISE NOTHING TO EAT OR DRINK AFTER MIDNIGHT: omeprazole 40 mg capsule,delayed release 40 mg PO QAM amlodipine 5 mg tablet 5 mg PO QAM aspirin 81 mg tablet,delayed release 81 mg PO QAM (unless directed otherwise by surgeon) Take evening before surgery ascorbic acid (vitamin C) 500 mg tablet (Vitamin C) 500 mg PO BID psyllium husk 3.4 gram/5.4 gram oral powder (Metamucil) 1 tbsp PO BID calcium carbonate 600 mg-vitamin D3 20 mcg (800 unit) tablet 1 tab PO BID finasteride 5 mg tablet 5 mg PO HS tamsulosin 0.4 mg capsule 0.8 mg PO HS lisinopril 40 mg tablet 40 mg PO PM rosuvastatin 20 mg tablet 20 mg PO PM Other Notes If you have any questions please call us at [phone] or [phone] or [phone] or [phone]
--- NOTE | 2022-08-02 12:53 | Anesthesiology Consultation ---
Date of Service August 02, 2022 Assessment & Plan (1) Encounter for pre-operative examination: - Cardiology office visit (07/21/22): "Nonobstructive CAD. Continue medical therapy. No angina. Chronic and stable dyspnea with exertion.. He reports being unable to tolerate metoprolol and Bystolic.. Chest pain: He has a history of chronic atypical chest discomfort which prompted cardiac catheterization with only mild nonobstructive CAD, and also CT imaging of the chest which was negative for PE in 2016 for the same symptom. No recent chest pain.. Dyspnea with exertion: Does not appear to be significantly hypervolemic. Chronic and stable symptom. Symptoms present for 2021 catheterization which demonstrated nonobstructive CAD.. Hypertension: Blood pressure slightly elevated today but typically better controlled. No changes made today.. AAA: Surveillance is being performed by PCP.. Mitral regurgitation: Non severe in 2020. Can monitor over time.. Preoperative evaluation: He is low risk from a cardiac standpoint for upcoming right total knee replacement. No further ischemic evaluation is necessary in anticipation of surgery.. Follow-up in 1 year or sooner for questions or concerns." - COVID screening: Per assessment on 08/02: No known COVID-19 positive contacts or current COVID-19 related symptoms. Travel screen negative. Patient vaccinated. At surgeon discretion if preop Covid testing being done. - Outpatient joint assessment: Pt currently scheduled for inpatient pathway. If surgeon requests review for outpatient joint pathway, patient is not recommended candidate for outpatient joint program from anesthesia standpoint. Chart Review Chart Review: Acceptable Risk for Surgery and Patient seen in Pre Admission Testing Teaching & Discussion Pre-Anesthesia Teaching/Discussion Notes: Instructed NPO after midnight before surgery,except medications with 15 cc of water. Medication instructions provided according to the PAT guidelines. History Surgery Operation Date: 09/02/22 08:40 Proposed Procedures p Right Total Knee Arthroplasty - Tristan Ann MD Height/Weight Height: 5 ft 6 in Weight: 107 kg Allergies Allergy/AdvReac Type Severity Reaction Status Date / Time ondansetron AdvReac Mild constipatio Verified 07/28/22 11:42 n Medications Home Medications Medication Instructions Recorded Confirmed Last Taken ascorbic acid (vitamin C) 500 mg 500 mg PO BID 06/12/19 07/28/22 07/26/22 tablet (Vitamin C) multivitamin 1 tab PO QAM 06/12/19 07/28/22 07/26/22 omega 3-bfw-zmz-fish oil 300 1 cap PO BID 06/12/19 07/28/22 07/26/22 mg-108 mg-162 mg-600 mg capsule,delay rel (Fish Oil) psyllium husk 3.4 gram/5.4 gram 1 tbsp PO BID 06/12/19 07/28/22 07/26/22 oral powder (Metamucil) calcium carbonate 600 mg-vitamin 1 tab PO BID 07/17/19 07/28/22 07/26/22 D3 20 mcg (800 unit) tablet garlic 1,000 mg capsule 1,000 mg PO QDD 07/17/19 07/28/22 07/26/22 cranberry extract 500 mg tablet 500 mg PO QAM 07/20/20 07/28/22 07/26/22 ontrghdazc-xmcwpjlbpzkpy-tinugbox 1 cap PO Q6H PRN Migraine Headache 05/10/21 07/28/22 11/24/21 50 mg-325 mg-40 mg capsule #30 caps indomethacin 50 mg capsule 50 mg PO TID PRN Migraine Headache 05/10/21 07/28/22 11/24/21 #30 caps nitroglycerin 0.4 mg sublingual 0.4 mg sublingual Q5M PRN chest 09/16/21 07/28/22 Unknown tablet pain #25 tabs omeprazole 40 mg capsule,delayed 40 mg PO QAM #90 caps 11/10/21 07/28/22 07/27/22 release finasteride 5 mg tablet 5 mg PO HS #90 tabs 03/10/22 07/28/22 07/26/22 tamsulosin 0.4 mg capsule 0.8 mg PO HS #90 caps 03/10/22 07/28/22 07/26/22 ketoconazole 2 % topical cream 1 applic topical .COMPLEX #180 03/21/22 07/28/22 Unknown grams lisinopril 40 mg tablet 40 mg PO PM #90 tabs 05/16/22 07/28/22 07/26/22 rosuvastatin 20 mg tablet 20 mg PO PM #90 tabs 05/16/22 07/28/22 07/26/22 amlodipine 5 mg tablet 5 mg PO QAM #90 tabs 07/21/22 07/28/2207/27/22 hydrochlorothiazide 25 mg tablet 25 mg PO QAM #90 tabs 07/21/22 07/28/22 07/27/22 aspirin 81 mg tablet,delayed 81 mg PO QAM 07/28/22 07/28/22 Unknown release Past Medical History Medical History AAA (abdominal aortic aneurysm) Under surveillance by PCP (3.3 x 3.3 cm per 2019 AAA ultrasound) Actinic keratosis BPH (benign prostatic hyperplasia) CAD (coronary artery disease) Non-obstructive per 12/2021 cardiac cath Chronic back pain Diverticulosis GERD (gastroesophageal reflux disease) Hearing deficit Hyperlipidemia Hypertension Internal hemorrhoids Migraine Non-STEMI (non-ST elevated myocardial infarction) 2015 Obesity Obstructive sleep apnea CPAP (compliant) Seborrheic keratosis Exercise / Class Metabolic Activity III < 4 Walking/Shop/Light housework (one FS (no CP, + occasional SOB)) Past Family History Family History Father Myocardial infarction Mother Heart disease Family hx of colon cancer Grandmother (Maternal) Family history of diabetes mellitus Other No family history of adverse response to anesthesia Past Surgical History Surgical History Atypical nevus with removal H/O colonoscopy H/O right wrist surgery tendonitis sx H/O vasectomy History of cardiac cath 12/2021, 2015 > no stents History of carpal tunnel surgery b/l hands History of cataract surgery RIGHT History of cystoscopy x2 History of esophagogastroduodenoscopy (EGD) History of eye surgery left to repair Exotropia History of gastric surgery benign mass removed from stomach History of prostate surgery [id number] History of right cataract surgery History of tooth extraction S/P tonsillectomy Status post trigger finger release left hand ring finger Past Anesthesia History No Hx of Anesthesia Complications and No Family Hx of Anesthesia Complications History of PONV No Hx of PONV and No Hx of Motion Sickness Social History Smoking Status: Former smoker Do You Dip or Chew Tobacco: No Smoking End Date: Quit Hx Alcohol Use: Yes Alcohol type: beer, wine and hard liquor alcohol intake frequency: 0-2 drinks per day (2 drinks/day) Hx Substance Use: No substance use type: does not use Review of Systems Patient denies chest pain, shortness of breath, fever, chills, cough, wheezing, palpitations. Physical Exam Vital Signs VITALS BP 130/75 P 90 TEMP 98.5 SP02 95%RA RESP 16 PHYSICAL Full cervical extension range of motion. Full TMJ range of motion. TMD 3 finger breaths Mallampati Score 3 Dentition: missing molars, + caps Lungs: clear throughout to auscultation Cardiac: regular rate and rhythm, I-II systolic murmur Spine: normal Carotid arteries: negative bruit Extremities: non-pitting edema Short thick neck Lab Results Anesthesia Preop Results Results Anesthesia Widget: WBC 7.94 K/ul (4.8-10.8) 08/02/22 Hgb 13.3 g/dl (14.0-18.0) L 08/02/22 Hct 39.7 % (40.1-51.0) L 08/02/22 Plt 123 K/uL (130-400) L 08/02/22 Na 137 mmol/L (136-145) 08/02/22 K 3.5 mmol/L (3.5-5.1) 08/02/22 Cl 99 mmol/L (98-107) 08/02/22 CO2 32 mmol/L (21-32) 08/02/22 BUN 19 mg/dl (6-23) 08/02/22 Creat 0.92 mg/dl (0.6-1.4) 08/02/22 Glucose Level 157 mg/dl (70-99(Fasting)) H 08/02/22 PT 10.6 Seconds (9.0-12.0) 08/02/22 PTT 25.6 Seconds (21.0-31.0) 08/02/22 INR 1.0 (0.9-1.1) 08/02/22 Blood Type A Positive 08/02/22 Antibody Screen NEGATIVE 08/02/22 Testing Laboratory Results Chronic mild thrombocytopenia- stable* Electrocardiogram Date: 08/02/22 Normal sinus rhythm at 88 bpm. LAD. Nonspecific IVCD. No significant change compared to 03/14/2020 per information systems audit manager review. Chest X-Ray Date: 01/24/22 Findings: + NAD Echocardiogram Date: 07/29/21 EF 60 to 65%. No regional motion abnormality. Mild concentric LVH. Mild MR. Top normal estimated RVSP. RVSP 36 mmHg. Type I diastolic dysfunction. No significant change compared to 05/27/2016 per report. Stress Test Date: 07/29/21 Abnormal myocardial perfusion study suggesting inferior and distal anteroseptal ischemia. Normal LV systolic function. EF 67%. Normal wall motion. Lexiscan induced chest pain and dyspnea. Nondiagnostic Lexiscan ECG. Patient had subsequent cardiac cath 12/2021 with Nonobstructive moderate distal RCA stenosis- medically managed. Cardiac Catheterization Date: 01/27/22 Summary: Nonobstructive moderate distal RCA stenosis (FFR 0.96). Recommendations: Continued ASCVD risk factor modification per Dr. Haddad. COVID-19 Risk Screen Screening Information COVID-19 Screen Date: 08/02/22 Exposure 21 Days Family/Household +COVID Last 21 Days: No Exposure 10 Days Any COVID Exposure Last 10 Days: No Symptoms Last 10 Days Experienced COVID Sx Last 10 Days: No + COVID 0-90 Days COVID + in Last 0-90 Days: No
--- NOTE | 2022-08-27 17:53 | History and Physical Report ---
DATE OF ADMISSION: 09/02/2022. CHIEF COMPLAINT: Right knee pain. HISTORY OF PRESENT ILLNESS: The patient is a 77-year-old gentleman who presents for surgical treatme nt of his right knee. He has got a long history of right knee pain and discomfort, describes it has gotten worse over time. We have been treating for years with injections. He is having trouble walki ng at times. He has used a cane intermittently and sometimes having trouble walking at all. Pain is mostly medial, but some global pain. He limps more as the day goes on. He has good and bad days, b ut more bad days than good days. He would like to have his knee fixed. PAST MEDICAL HISTORY: 1. Significant for coronary artery disease, status post AK in 2016 with recent cardiac catheterizati on and cleared by Dr. Haddad and Dr. Gasca with medical management. 2. Hypertension. 3. Elevated cholesterol. 4. Sleep apnea with CPAP machine. 5. Gastroesophageal reflux disease. 6. Obesity with a BMI 38. 7. Low back pain/sciatica. 8. BPH. PREVIOUS SURGERIES: Include: 1. Colonoscopy. 2. Wrist surgery. 3. Vasectomy. 4. Carpal tunnel release. 5. Eye surgery. 6. Gastric surgery. 7. Prostate surgery. 8. Oral surgery. 9. Tonsillectomy. 10. Trigger finger surgery. ALLERGIES: ONDANSETRON. CURRENT MEDICATIONS: Include: 1. Amlodipine. 2. Vitamin C. 3. Aspirin. 4. Calcium. 5. Finasteride. 6. Garlic. 7. Hydrochlorothiazide. 8. Indomethacin. 9. Ketoconazole. 10. Lisinopril. 11. Multivitamin. 12. Nitroglycerin. 13. Omeprazole. 14. Metamucil. 15. Rosuvastatin. 16. Tamsulosin. SOCIAL HISTORY: A 77-year-old male. He is a . He lives alone. Retired. Does not smoke. D rinks alcohol regularly. FAMILY HISTORY: Noncontributory. REVIEW OF SYSTEMS: Significant for heart disease with recent cardiac catheterization and cleared for surgery. Medical m anagement. No current chest pain or shortness of breath. No history of DVT or PE. PHYSICAL EXAMINATION: GENERAL: Shows a pleasant middle-aged male. Looks to be in reasonably good health. HEENT: Benign. NECK: Supple, with no lymphadenopathy. LUNGS: Clear to auscultation. HEART: Regular rate and rhythm. ABDOMEN: Soft, nontender, nondistended. EXTREMITIES: Grossly neurovascularly intact except as follows. Examination of the right knee reveals the patient walks with an antalgic gait. He has got varus alig nment to his knee. He wears a knee brace regularly. He has got some venous changes distally but no open wounds. He is tender with medial joint line. Range of motion 5-120. No instability. No pain with hip motion. X-RAYS: X-rays of the right knee from 04/18/2022 were reviewed. It shows advanced medial compartmen t arthritis, he has got complete loss of medial joint space. ASSESSMENT: A 77-year-old male with multiple medical comorbidities including coronary artery disease , sleep apnea, hypertension, elevated cholesterol, gastroesophageal reflux disease, obesity, and BPH with advanced right knee DJD. He has failed conservative measures. He would like to have his knee f ixed. PLAN: We are going to take him to the operating room and do right total knee replacement. The risks and benefits of the procedure were explained to the patient and include but not limited to DVT, PE, , infection, neurological injury, vascular injury, bleeding problem, pain, limited range of satish on, stiffness, failure to relieve his symptoms, incomplete relief of symptoms, etc. The patient unde rstands and desires to proceed. Informed consent was obtained. He has been seen by his wood miller and cleared for surgery. He lives by himself and he is probably getting some help at home. He has been using [employer]. He will hold his lisinopril an d hydrochlorothiazide the morning of surgery. Should take omeprazole. He has allergy to Zofran. We will see what that is and whether to give that to him postoperatively. Job ID: [id number]
[2022-09-02] MEDS ORDERED: METOCLOPRAMIDE HCL 10 MG TABLET PO SCH (06:00)
[2022-09-02] MEDS ORDERED: ACETAMINOPHEN 500 MG TAB PO SCH (06:00)
[2022-09-02] MEDS ORDERED: LR 60ML/HR IV SCH (06:00)
[2022-09-02] MEDS ORDERED: CeleBREX 200 MG CAP PO SCH (06:00)
[2022-09-02] MEDS ORDERED: BUPIVACAINE LIPOSOME/PF 266 MG, BUPIVACAINE/EPINEPHRINE 50 ML, SODIUM CHLORIDE 0.9% 30 ... INFIL SCH (06:00)
[2022-09-02] MEDS ORDERED: FAMOTIDINE 20 MG TAB PO SCH (06:00)
[2022-09-02] MEDS ORDERED: TRANEXAMIC ACID 1,000 MG **IV Intra-op IV SCH (06:00)
[2022-09-02] MEDS ORDERED: ceFAZolin 2000MG 2,000 MG/15 ML SYR IV SCH (06:00)
[2022-09-02] MEDS ORDERED: LR 500ML BOLUS, THEN 15ML/HR IV SCH (06:00)
[2022-09-02] MEDS ORDERED: EPINEPHrine INJ 1 MG/ML AMP ONE (06:38)
[2022-09-02] MEDS ORDERED: BUPIVACAINE 0.5 % 5 MG/1 ML PF 10ML VIAL ONE (06:39)
[2022-09-02] MEDS ORDERED: ROPIVACAINE 0.5% 5 MG/ML 30 ML VIAL ONE (06:39)
--- NOTE | 2022-09-02 06:54 | History & Physical Bridge Note ---
Date of Service September 02, 2022 History & Physical Bridge Note I have examined the patient, reviewed the History & Physical and in the interval since the performance of the History & Physical I have noted the following changes of clinical significance: no changes noted
[2022-09-02] MEDS ORDERED: MIDAZOLAM HCL 1 MG/ML 2ML VIAL ONE (08:10)
[2022-09-02] MEDS ORDERED: fentaNYL citrate 100 MCG/2 ML VIAL ONE (08:10)
[2022-09-02] MEDS ORDERED: PROPOFOL IV EMULSION 10 MG/ML 20 ML VIAL IV ONE ×2 (08:56→10:46)
[2022-09-02] MEDS ORDERED: LIDOCAINE 2% MPF LOCAL 5 ML VIAL INFIL ONE (08:56)
[2022-09-02] MEDS ORDERED: BUPIVACAINE/EPINEPHRINE 0.25% 1:200,000 30 ML VIAL ONE (08:57)
[2022-09-02] MEDS ORDERED: SODIUM CHLORIDE 0.9% PF 50 ML VIAL ONE (08:57)
[2022-09-02] MEDS ORDERED: BUPIVACAINE LIPOSOME 1.3% 266 MG/20 ML VIAL ONE (08:58)
[2022-09-02] MEDS ORDERED: ePHEDrine sulfate 50 MG/ML AMP ONE (10:06)
[2022-09-02] MEDS ORDERED: PHENYLEPHRINE 100MCG/ML 5ML SYR ONE (10:06)
[2022-09-02] MEDS ORDERED: ATROPINE SULFATE 0.1 MG/ML 10ML SYR IV PRN (10:14)
[2022-09-02] MEDS ORDERED: ePHEDrine sulfate 50 MG/ML AMP IV PRN (10:14)
--- NOTE | 2022-09-02 11:06 | Operative Report ---
PG Post Operative Report Pre & Post Diagnosis Operation Date: 09/02/22 08:50 Pre-Op Diagnosis: Right Knee Osteoarthritis Post-Op Diagnosis: Right Knee Osteoarthritis I identified the patient and participated in the time-out.: Yes Procedure Operation Date: 09/02/22 08:50 Actual Procedures p Right Total Knee Replacement(Right) - Tristan Ann MD Surgeon Tristan Ann MD Business Banking Representative Michael Goss PA-C Estimated Blood Loss 50 Findings Consistent with Post-Op Diagnosis Operative findings were advanced right knee medial compartment DJD. He had grade 4 [id number] disease of the medial femoral condyle medial tibial plateau. The lateral and patellofemoral compartments are pretty well spared. He did have a varus deformity to his knee with a moderate-sized knee joint effusion. Fluids 1600 cc Specimens Right knee sent for pathology Drains None Anesthesia Type Spinal MAC Complications none Disposition Accompanied Patient To Recovery: No Indications Patient is a 77-year-old gentleman has had a several year history of gradual progressive increasing right knee pain discomfort. He has been through extens bonita conservative treatment over the years and became less successful. Became more debilitated by his disease. He elected proceed with total knee arthroplasty. Description of Procedure Operative implants consisted of: 1 Biomet Vanguard size 65 right posterior stabilized femoral component. 2. Biomet size 71 tibial tray. 3. 12 mm posterior stabilized polyethylene insert. 4. 31 x 8 all Paller patella. The patient was taken the operating, identified, and placed on the operating table supine position protectors were properly padded. IV antibiotics tried by anesthesia team. A spinal anesthetic and abductor canal block had provided in the holding area. A Lockwood catheter was placed in sterile fashion. A right thigh tourniquet was then placed in the right lower extremities and prepped and draped in usual sterile fashion. The right leg was elevated exsanguinated with use of an Esmarch and the tourniquet was set at 300 mmHg. An anterior approach of the right knee was then performed through a longitudinal incision centered over the patella. Sharp dissection was carried through subcutaneous tissue down the extensor mechanism. A medial parapatellar arthrotomy incision was made. Some subperiosteal dissection was carried out medially. The fat pad was resected from Neath patella tendon. The lateral patellofemoral ligament was released. Patella subluxated laterally and the knee was flexed. The osteophytes taken out distal femur. ACL and PCL were then released from the distal femur the tibia subluxated anteriorly. The external tibial alignment jig was then placed in the interface the tibia and adjusted 14 mm medially. The proximal tibial cut was then made to remove about 2 mm of bone from most deficient aspect medial tibial plateau. The tibia sized to a size 71. Attention drawn the femur. The distal femur examined the sharp drill. Intramedullary canal was suction. A right 6 degree valgus cutting guide was placed. Distal femoral cutting block was pinned in place. Distal femoral cut was made to take an additional 3 mm bone off distal femur. The femur was then sized to a size 65. We did downsize this slightly. The AP cutting block was pinned parallel to the epicondylar axis which was 3 degrees of external rotation. The anterior cut, anterior chamfer, posterior cut, posterior chamfer cuts were made. The box cutting guide was then placed in the just slight lateral and the box cut was made. The knee was flexed. The remnants of the medial and lateral menisci were excised. The osteophytes were taken off the posterior aspect of femur. Trial femoral component was placed. Tibial tray was pinned in maximum external rotation and the drill and stem punch were used to create defect in proximal tibia for the tibial tray. Knee was then trialed and the 12 mm insert fit most appropriately. Attention drawn the patella. The patella was cleaned of all soft tissues. Patella thickness measured 22 mm in thickness was cut down to 14. Was sized to a size 31 patella. The lug holes were drilled for the 31 patella. Lateral osteophytes removed. Patella button was placed. Knee was taken through range of motion patella tracked nicely with no thumbs test. Attention drawn to placing the permanent components. All trial components were removed. Bone plug was placed in the distal femur limit blood loss. A double batch Palacos G cement was mixed. A Biomet Vanguard size 65 right posterior stabilized femoral component, a size 71 tibial tray, a 12 mm posterior stabilized polyethylene insert, and a 31 x 8 all Paller patella then cemented in place. Knee was brought out in full extension until cement hardened. Final cement check was then performed. Pericapsular tissues were injected with total 100 cc of combination of 20 cc of Exparel, 30 cc normal saline, 50 cc of quarter percent Marcaine with epinephrine. Patient did receive 1 g tranexamic acid. The tourniquet was let down for final tourniquet time of 56 minutes. Hemostasis assured use electrocautery. Extensor mechanism closed with combination 1 PDS suture #1 Vicryl suture in a [id number] fashion. Extensor mechanism was checked and found to be intact with subcutaneous tissue then closed with 2 Dexon suture in a buried erupted fashion skin was closed skin alexa. Leg was then cleaned and dried a sterile dressing was Xeroform, 4 x 4's, sterile cast padding, Irineo bandage applied. Patient then transferred to the recovery room in stable condition. The patient tolerated the procedure well and there were no complications. Michael Goss, my physician assistant oceanographer, was present for the entire procedure. His assistance was essential and required for appropriate patient positioning, prepping and draping, surgical exposure, performing the technical details of the operation, placement the implants, closure of the wound, and placement of the sterile bandage. I attest to the content of the Intraoperative Record and any orders documented therein. Any exceptions are noted below.
--- NOTE | 2022-09-02 11:23 | XRay Report ---
XR knee RT 1 or 2V routine HISTORY: 77 years-old Male Surgical Post Op right knee total joint arthroplasty COMPARISON: Knee radiographs 04/18/2022 TECHNIQUE: 2 views of the right knee FINDINGS: Total joint arthroplasty with patellar resurfacing. Anterior midline skin alexa are noted along wit h expected postoperative soft tissue swelling and deep tissue air. No acute fracture, alignment or un expected opaque foreign body. IMPRESSION: Total joint arthroplasty with expected postoperative changes. ACT 112: Negative or not required by law. The above report was generated using voice recognition software. It may contain grammatical, syntax o r spelling errors. Electronically signed by: Don Crawford M.D. 09/02/2022 11:22 AM
--- NOTE | 2022-09-02 11:38 | Anesthesiology Progress Note ---
Date of Service September 02, 2022 Anesthesia Post Procedure Vital Signs Vital Signs: Temp Pulse Pulse Resp BP BP Pulse Ox 09/02/22 11:25 74 19 111/45 L 100 09/02/22 11:15 76 17 112/46 L 98 09/02/22 11:05 36.9 C 81 16 99/45 L 99 09/02/22 06:44 36.8 C 78 20 166/67 H 97 O2 Del Method O2 Flow Rate 09/02/22 11:25 Oxymask 4 09/02/22 11:15 Oxymask 6 09/02/22 11:05 Oxymask 10 09/02/22 06:44 Room Air Pain Intensity Right Knee: Pain Intensity: 4 Transfer of Care Handoff Completed per policy Notes Mental Status: alert / awake / arousable Patient Amnestic to Procedure: Yes Nausea / Vomiting: adequately controlled Pain: adequately controlled Airway Patency, RR, SpO2: stable & adequate BP & HR: stable & adequate Hydration State: stable & adequate Neuraxial Anesthesia: was administered and sensory block is resolving Anesthetic Complications: no major complications apparent
[2022-09-02] MEDS ORDERED: ACETAMINOPHEN PO PRN (12:32)
[2022-09-02] MEDS ORDERED: HYDROmorphone INJ 0.5 MG/0.5 ML SYR IV PRN (12:32)
[2022-09-02] MEDS ORDERED: NITROGLYCERIN SL 0.4 MG/TAB TAB SL PRN (12:32)
[2022-09-02] MEDS ORDERED: NALOXONE HCL 0.4 MG/1 ML VIAL/CARP IV PRN (12:32)
[2022-09-02] MEDS ORDERED: ALUMINUM/MAGNESIUM SUSP 30 ML UDC PO PRN (12:32)
[2022-09-02] MEDS ORDERED: bisacodyL 10 MG SUPP PR PRN (12:32)
[2022-09-02] MEDS ORDERED: BUTALBITAL PO PRN (12:32)
[2022-09-02] MEDS ORDERED: CAFFEINE PO PRN (12:32)
[2022-09-02] MEDS ORDERED: METOCLOPRAMIDE HCL INJ 5 MG/ML 2 ML VIAL IV PRN (12:32)
[2022-09-02] MEDS ORDERED: MAGNESIUM HYDROXIDE SUSP 30 ML UDC PO PRN (12:32)
[2022-09-02] MEDS: ACETAMINOPHEN 500 MG TAB PO SCH ×2 (14:03→20:45)
[2022-09-02] MEDS: KETOROLAC TROMETHAMINE 15 MG/ML VIAL IV SCH ×2 (14:04→20:43)
[2022-09-02] MEDS: SODIUM CHLORIDE 0.9% 1000ML 1,000 ML IV SCH ×2 (14:05→22:51)
[2022-09-02] MEDS: oxyCODONE HCL IR 5 MG TAB (IMMEDIATE RELEASE) PO PRN ×2 (15:05→23:51)
[2022-09-02] MEDS ORDERED: NON-FORMULARY MEDICATION (Garlic 1,000 mg capsule) PO SCH (16:30)
[2022-09-02] MEDS ORDERED: TRANEXAMIC ACID / 0.7% NACL 1,000 MG/100 ML BAG IV SCH (17:00)
[2022-09-02] MEDS: ceFAZolin 2000MG 2,000 MG/15 ML SYR IV SCH ×2 (17:31→23:51)
[2022-09-02] MEDS: PSYLLIUM or GUAR GUM FIBER POWDER PACKET PO SCH (20:38)
[2022-09-02] MEDS: ASPIRIN 81 MG ECTAB PO SCH (20:43)
[2022-09-02] MEDS: TAPENTADOL HCL ER 50 MG TABCR PO SCH (20:43)
[2022-09-02] MEDS: ASCORBIC ACID 500 MG TAB PO SCH (20:43)
[2022-09-02] MEDS: OMEGA-3 (PURIFIED FISH OIL) 1 GM CAP PO SCH (20:44)
[2022-09-02] MEDS: DOCUSATE SODIUM 100 MG CAP PO SCH (20:44)
[2022-09-02] MEDS: CALCIUM 600MG + VIT D 400 IU TAB PO SCH (20:44)
[2022-09-02] MEDS ORDERED: SENNA 8.6 MG TAB PO SCH (21:00)
[2022-09-02] MEDS ORDERED: TAMSULOSIN HCL 0.4 MG CAP PO SCH (21:00)
[2022-09-02] MEDS ORDERED: lisinopril 40 MG TAB PO SCH (21:00)
[2022-09-02] MEDS ORDERED: FINASTERIDE 5 MG TAB PO SCH (21:00)
[2022-09-02] MEDS ORDERED: ROSUVASTATIN CALCIUM 20 MG TAB PO SCH (21:00)
[2022-09-03] MEDS: KETOROLAC TROMETHAMINE 15 MG/ML VIAL IV SCH ×2 (03:01→08:42)
[2022-09-03] MEDS: ACETAMINOPHEN 500 MG TAB PO SCH (05:52)
[2022-09-03 06:57] LABS: Hemoglobin 10.6 g/dl (14.0-18.0); Mean Corpuscular Hemoglobin 30.5 pg (25.0-34.0); Mean Corpuscular Hgb Conc 34.2 g/dL (32.0-36.0); Mean Corpuscular Volume 89.1 fL (80.0-100.0); Mean Platelet Volume 8.2 fL (9.4-12.4); Platelet Count 118 K/uL (130-400); RDW Coefficient of Variation 13.2 % (11.5-14.5); RDW Standard Deviation 43.5 fL (36.4-46.3); Red Blood Count 3.48 M/uL (4.63-6.08); White Blood Count 8.21 K/ul (4.8-10.8)
[2022-09-03] MEDS: oxyCODONE HCL IR 5 MG TAB (IMMEDIATE RELEASE) PO PRN (07:01)
[2022-09-03 07:20] LABS: BUN Creatinine Ratio 21.7 (10-20); Calcium 8.9 mg/dl (8.5-10.1); Est GFR (African American) 78.6 ml/min; Est GFR (Non-African American) 67.8 ml/min
[2022-09-03] MEDS ORDERED: dexAMETHasone 10 MG in SYRINGE 0 ML IV SCH (08:00)
[2022-09-03] MEDS: PSYLLIUM or GUAR GUM FIBER POWDER PACKET PO SCH (08:37)
[2022-09-03] MEDS: OMEGA-3 (PURIFIED FISH OIL) 1 GM CAP PO SCH (08:38)
[2022-09-03] MEDS: DOCUSATE SODIUM 100 MG CAP PO SCH (08:38)
[2022-09-03] MEDS: TAPENTADOL HCL ER 50 MG TABCR PO SCH (08:38)
[2022-09-03] MEDS: ASCORBIC ACID 500 MG TAB PO SCH (08:39)
[2022-09-03] MEDS: ASPIRIN 81 MG ECTAB PO SCH (08:39)
[2022-09-03] MEDS: CALCIUM 600MG + VIT D 400 IU TAB PO SCH (08:39)
[2022-09-03] MEDS ORDERED: MULTIVITAMIN TAB PO SCH (09:00)
[2022-09-03] MEDS ORDERED: hydroCHLOROthiazide 25 MG TAB PO SCH (09:00)
[2022-09-03] MEDS ORDERED: PANTOprazole 40 MG TAB PO SCH (09:00)
[2022-09-03] MEDS ORDERED: amLODIPine BESYLATE 5 MG TAB PO SCH (09:00)
[2022-09-03] MEDS ORDERED: NON-FORMULARY MEDICATION (Multivitamin Tablet) PO SCH (09:00)
--- NOTE | 2022-09-03 09:00 | Progress Notes ---
SUBJECTIVE: A 77-year-old gentleman postoperative day 1 from a right knee replacement. He is doing pretty well. Pain has been controlled. No chest pain or shortness of breath. Not feeling dizzy or lightheaded. Hoping to go home today. OBJECTIVE: VITAL SIGNS: Temperature 37.0. Vital signs are stable. GENERAL: Shows a pleasant middle-aged male. He is sitting up in bed this morning and looks comforta ble. LUNGS: Clear to auscultation. HEART: Regular rate and rhythm. ABDOMEN: Soft, nontender, nondistended. EXTREMITIES: Grossly neurovascularly intact except as follows. Examination of the right leg reveals the leg to be well aligned. Dressing is clean, dry, and intact. He can dorsiflex and plantarflex h is foot appropriately. He is neurologically intact. LABORATORY DATA: Hemoglobin 10.6. Hematocrit 31.0. Electrolytes are stable. ASSESSMENT: A 77-year-old gentleman, postoperative day 1 from a right knee replacement, doing pretty well. He has got multiple comorbidities, but everything seems to be under good control. PLAN: 1. DVT prophylaxis includes thigh-high TEDs, SCDs, and aspirin twice a day. 2. PT/OT, weightbear as tolerated. Right total knee protocol. 3. Pain control, doing okay with current pain regimen. 4. Disposition: Plan to discharge to home with some home health if he does okay in therapy today. Job ID: [id number]
--- NOTE | 2022-09-09 07:43 | Discharge Summary ---
Date of Service September 09, 2022 Discharge Data Procedures Performed Operation Date: 09/02/22 08:50 Actual Procedures p Right Total Knee Replacement(Right) - Tristan Ann MD Hospital Course (1) Status post total right knee replacement: This a 77 year old patient admitted on 09/02/22 and underwent total knee arthroplasty. He tolerated the procedure well and there were no complications. Transferred to the PACU post op and later to the orthopedic floor for further care. He was given ancef for antibiotic prophylaxis. He was also given SAMANTHA stockings, SCDs, and aspirin for DVT prophylaxis. Hemoglobin, hematocrit, and vital signs were monitored during his hospital stay and remained stable. Did not require any blood transfusions. There were no complications during his hospital stay. By post op day #1 the patient was tolerating a regular diet, pain was reasonably controlled with oral pain medicine, and he was participating in physical therapy. On post op day #1 the patient was discharged home and set up with home health care. He was given printed discharge instructions including prescriptions for extra strength tylenol, aspirin, ketorolac, and oxycodone. Continue physical therapy, weight bearing as tolerated. Continue SAMANTHA stockings. Follow up approximately 2 weeks post op or sooner if there are problems or concerns. Coding Level of Care Code None Diagnoses Status post total right knee replacement Z96.651
== END 2022-09-03 12:21 | disposition home health service (06) ==
LOC: ASU 05:52 → 3E 05:52